=== PATIENT | female | born 1940 | race Caucasian/White ===

== ENCOUNTER 2018-10-08 12:32 | Inpatient (IN) | payer MEDICARE, BC ==
[2018-10-08 13:34] LABS: #Lymphocytes 1.1 thou/uL (1.20-3.40); #Monocytes 0.6 thou/uL (0.11-0.59); %Basophils 0.8 % (0.0-1.0); %Eosinophils 0.3 % (0.0-10.0); %Lymphocytes 18.4 % (21.0-51.0); %Monocytes 11.1 % (0.0-10.0); %Neutrophils 69.4 % (42.0-75.0); Hemoglobin 13.2 g/dL (12.0-16.0); Mean Corpuscular HGB CONC 33.6 g/dL (32.0-36.0); Mean Platelet Volume 7.6 fL (7.4-10.4); Platelet Count 205 thou/uL (130-400); RBC Distribution Width 12.3 % (11.5-14.5); Red Blood Cell (RBC) Count 3.55 mill/uL (4.20-5.40); White Blood Cell (WBC) Count 5.8 thou/uL (4.8-10.8)
[2018-10-08 13:49] LABS: Band 3 % (5-11); Lymphocytes 17 % (21-51); MDiff Complete? YES; Macrocytosis SLIGHT = 6-15 cells (100X) (0-5/hpf); Metamyelocyte 1 % (0-0); Monocytes 3 % (0-10); Neutrophil 61 % (42-75); Platelet Morphology Comment Appears Adequate; Reactive Lymphocytes 15 % (0-10)
--- NOTE | 2018-10-08 13:50 | RAD ---
SINGLE VIEW CHEST: Date: 10/08/18 COMPARISON: 08/13/16. HISTORY: Atrial fibrillation. Abnormal ultrasound of gallbladder. FINDINGS: Single view of the chest shows a normal sized cardiomediastinal silhouette. There is no evidence of c onsolidation, mass, or pleural effusion. The bones are unremarkable. IMPRESSION: No evidence of acute cardiopulmonary disease. POS: [facility]
[2018-10-08 13:51] LABS: ALT (SGPT) 170 U/L (8-55); AST (SGOT) 168 U/L (5-34); Albumin 4.5 g/dL (3.4-4.8); Alkaline Phosphatase 143 U/L (40-150); Anion Gap 16 mmol/L (10-20); BUN (Urea Nitrogen) 19 mg/dL (9.8-20.1); Bilirubin, Total 2.9 mg/dL (0.2-1.2); Calc. Creatinine Clearance 0 mL/min (70-130); Calcium 10.5 mg/dL (7.8-10.44); Carbon Dioxide 25 mmol/L (23-31); Chloride 98 mmol/L (98-107); Estimated GFR-MDRD 65; Globulin 2.8 g/dL (2.4-3.5); Glucose 127 mg/dL (83-110); Lipase 32 U/L (8-78); Protein, Total 7.3 g/dL (6.0-8.3); Sodium 135 mmol/L (136-145)
[2018-10-08] MEDS ORDERED: Acetaminophen 325 MG TAB PO PRN (15:54)
[2018-10-08] MEDS ORDERED: Ondansetron PF 4 MG/2 ML Vial IVP PRN (15:54)
[2018-10-08] MEDS ORDERED: Piperacillin/Tazobactam 3.375 GM VIAL ONE (15:55)
--- NOTE | 2018-10-08 16:45 | HP ---
REASON FOR ADMISSION: New onset atrial fibrillation with RVR, possible acute cholecystitis, possible cirrhosis. HISTORY OF PRESENTING ILLNESS: The patient gives history of having loss of appetite, nausea, belching, low energy, and feeling weak from yesterday. She had gone to see Dr. Augustin, her primary care physician. He had ordered an ultrasound of the right upper quadrant. This was done this morning. The ultrasound result showed gallbladder wall thickening with pericholecystic fluid and gallbladder sludge, which was equivocal for acute cholecystitis. The ultrasound also showed fatty infiltration and possible cirrhosis. The patient says she has no history of hepatitis B or C that she knows of. She also mentions that her pulse has been irregular when she checked with her home device for blood pressure and pulse almost 4 or 5 days back. She has never had this issue before. She sees Dr. Spaulding. She has had a stress test done 5 years back, which was negative. She thinks she might have had a cardiac catheterization done more than 6 or 7 years ago, which was normal. She says she has not had any stents put in. No complaints of chest pain or palpitation. No complaints of shortness of breath. Mild abdominal pain in the right upper quadrant area, which is 2 to 3/10 in intensity with no radiation as such. PAST MEDICAL AND SURGICAL HISTORY: Hypertension, hypothyroidism, new onset atrial fibrillation, colonoscopy done last year by Dr. Mckeon was normal as far she knows , hypothyroidism, and dyslipidemia. No prior surgeries per the patient. CURRENT MEDICATIONS: She takes, 1. Atenolol 50 mg p.o. daily. 2. Ramipril 5 mg daily. 3. Synthroid 125 mcg p.o. daily. 4. Crestor 10 mg p.o. every other day. ALLERGIES: NO KNOWN DRUG ALLERGIES. PERSONAL HISTORY: Does not abuse alcohol or drugs. No history of smoking. FAMILY HISTORY: Mother at the age of 78 years. She has had history of CVA. Father at the age of 77 years. He has had history of unknown GI cancer, likely stomach. CODE STATUS: Full. Power of tax attorney is Ms. Aniya Hayes, who is her sister. REVIEW OF SYSTEMS: CONSTITUTIONAL: Negative for weight loss or gain, ability to conduct usual activities. SKIN: Negative for rash, itching. EYES: Negative for double vision, pain. ENT/MOUTH: Negative for nose bleeding, neck stiffness, pain, tenderness. CARDIOVASCULAR: Negative for palpitations, dyspnea on exertion, orthopnea. RESPIRATORY: Negative for shortness of breath, wheezing, cough, hemoptysis, fever or night sweats. GASTROINTESTINAL: Negative for poor appetite, abdominal pain, heartburn, nausea , vomiting, constipation, or diarrhea. GENITOURINARY: Negative for urgency, frequency, dysuria, nocturia. MUSCULOSKELETAL: Negative for pain, swelling. NEUROLOGIC/PSYCHIATRIC: Negative for anxiety, depression. ALLERGY/IMMUNOLOGIC: Negative for skin rash, bleeding tendency. PHYSICAL EXAMINATION: GENERAL: The patient is a 78-year-old female, who is currently not in any acute distress. VITAL SIGNS: Blood pressure 144/84, pulse 130 per minute, respiratory rate 16 per minute, temperature 97.6 degrees Fahrenheit, and saturating 98% on room air. NECK: Supple. No elevated JVD. HEENT: Eyes; extraocular muscles intact. Pupils reacting to light. Oral cavity, mucous membranes are moist. No exudates or congestion. CARDIOVASCULAR: S1 and S2 heard. Irregular rhythm. RESPIRATORY SYSTEM: Air entry 1+ bilateral. No rales or rhonchi. ABDOMEN: Soft. Mild tenderness on deep palpation in right upper quadrant, otherwise no rigidity or guarding. EXTREMITIES: No peripheral edema or calf tenderness. VASCULAR SYSTEM: Peripheral pulses 1+ bilateral. No ischemic ulcerations or gangrene. CENTRAL NERVOUS SYSTEM. No gross focal deficits noted. The patient is alert, awake, and oriented well. PSYCHIATRIC SYSTEM: The patient's mood is euthymic. No hallucinations or delusions. LABORATORY DATA: EKG done shows atrial fibrillation with RVR at 133 beats per minute. There are signs of LBBB. I do not have a prior EKG to compare this. The QRS duration is 150 milliseconds and corrected QT is 517 milliseconds. White count of 5.8, H and H 13 and 39, platelet count is 205 with 69% neutrophils, and MCV is 110. Sodium 135, serum bicarb 25, BUN 19, creatinine 0.8, serum glucose 127, calcium is 10.5, albumin is 4.5, total bilirubin 2.9, AST 168, ALT 170, alkaline phosphatase 143, lipase is 32. Chest x-ray done shows no acute cardiopulmonary abnormalities. CLINICAL IMPRESSION AND PLAN: The patient will be admitted to telemetry for new onset atrial fibrillation with RVR, possible acute cholecystitis. The patient's ultrasound that was done as outpatient, the report states the patient might have findings of cirrhosis with nodular contour in addition to findings of pericholecystic fluid and gallbladder wall thickening with sludge. She also appears to have fatty infiltration. We will obtain lipid profile in the morning. A HIDA scan will be obtained. ER physician has spoken to Dr. Saucedo, who is on-call for General Surgery. It is unclear if the patient has chronic elevation in her liver function tests. Prior LFT in August of 2016 was within normal limits and total bilirubin was 1.0 then. We will keep her n.p.o., obtain HIDA scan and if it is positive, she will go to OR for acute cholecystitis. If HIDA scan rules out acute cholecystitis, then the patient will be fed with heart healthy diet and initiate lovenox full dose. We will continue her on Cardizem drip 5 mg an hour. We will continue Zosyn that has been started. We will continue her atenolol, a small dose of aspirin, home dose of Synthroid and ramipril. Echocardiogram with 2D Doppler for left ventricular function and to rule out thrombus as well. We will obtain Dr. Spaulding's consult, her director of special events, and hepatitis panel as well. We will continue to closely monitor her on telemetry. Job ID: [id number] [facility]
[2018-10-08 17:25] LABS: HBCM Index 0.07 S/CO (0-0.79); HBSAg Index 0.22 S/CO (0-0.99); Hep A IgM AB Non-Reactive (NonReactive); Hep A IgM S/CO 0.11 S/CO (0-0.79); Hep B Surf Ag Non-Reactive S/CO (NonReactive); Hep C IgG Ab Non-Reactive (NonReactive); Hep C Index 0.05 S/CO (0-0.79); Hepatitis B Core IgM Abs Non-Reactive (NonReactive)
[2018-10-08] MEDS: Diltiazem 125 MG in Sodium Chloride 0.9% 100 ML IVPB SCH (22:11)
[2018-10-08] MEDS: Sodium Chloride 0.9% 1,000 ML IV SCH (22:12)
[2018-10-08] MEDS: Enoxaparin Sodium 60 MG/0.6 ML SYRINGE SC SCH (22:13)
[2018-10-08] MEDS: Famotidine/PF 20 mg/2ml Vial SLOW IVP SCH (22:13)
[2018-10-08] MEDS ORDERED: Melatonin 3 MG TAB PO PRN (23:16)
[2018-10-08] MEDS: Piperacillin/Tazobactam 4.5 GM in Sodium Chloride 0.9% 100 ML IVPB SCH (23:37)
[2018-10-09 04:06] VITALS: BMI 28.5
[2018-10-09 05:32] LABS: #Lymphocytes 0.8 thou/uL (1.20-3.40); #Monocytes 0.8 thou/uL (0.11-0.59); #Neutrophils 4.3 thou/uL (1.40-6.50); %Basophils 0.2 % (0.0-1.0); %Eosinophils 0.4 % (0.0-10.0); %Lymphocytes 14.1 % (21.0-51.0); %Monocytes 13.4 % (0.0-10.0); Hemoglobin 12.4 g/dL (12.0-16.0); Mean Corpuscular HGB CONC 33.5 g/dL (32.0-36.0); Mean Platelet Volume 7.5 fL (7.4-10.4); Platelet Count 191 thou/uL (130-400); RBC Distribution Width 12.7 % (11.5-14.5); Red Blood Cell (RBC) Count 3.36 mill/uL (4.20-5.40)
[2018-10-09 06:01] LABS: ALT (SGPT) 162 U/L (8-55); AST (SGOT) 168 U/L (5-34); Albumin 4.1 g/dL (3.4-4.8); Alkaline Phosphatase 139 U/L (40-150); Anion Gap 16 mmol/L (10-20); BUN (Urea Nitrogen) 17 mg/dL (9.8-20.1); Bilirubin, Total 2.9 mg/dL (0.2-1.2); Calc. Creatinine Clearance 62 mL/min (70-130); Calcium 9.6 mg/dL (7.8-10.44); Carbon Dioxide 20 mmol/L (23-31); Cardiac Risk 2.8 (Less than 4.5); Chloride 105 mmol/L (98-107); Cholesterol 173 mg/dl (< 200 Desired); Estimated GFR-MDRD 66; Globulin 2.6 g/dL (2.4-3.5); Glucose 131 mg/dL (83-110); HDL Cholesterol 61 mg/dL (>60 Neg Risk); LDL Cholesterol, Calculated 95 mg/dL; Potassium 3.7 mmol/L (3.5-5.1); Protein, Total 6.7 g/dL (6.0-8.3); Sodium 137 mmol/L (136-145); Triglycerides 86 mg/dL (Less than 150)
[2018-10-09] MEDS: Piperacillin/Tazobactam 4.5 GM in Sodium Chloride 0.9% 100 ML IVPB SCH ×3 (06:34→22:29)
[2018-10-09] MEDS: Sodium Chloride 0.9% 1,000 ML IV SCH ×2 (06:35→22:29)
[2018-10-09] MEDS: Levothyroxine Sodium 125 MCG TAB PO SCH (06:35)
[2018-10-09] MEDS ORDERED: Prevnar 13-Val Conj/PF 0.5 ML SYRINGE IM ONE (09:00)
[2018-10-09] MEDS ORDERED: Aspirin Chewable 81 MG TAB PO SCH (09:00)
[2018-10-09] MEDS ORDERED: Ramipril 5 MG CAP PO SCH (09:00)
--- NOTE | 2018-10-09 11:36 | NM ---
HEPATOBILIARY STUDY: DATE: 10/09/2018. HISTORY: Nausea, belching, loss of appetite. Elevated laboratory values. Gallbladder wall thickening and per icholecystic fluid noted on recent gallbladder ultrasound. RADIOPHARMACEUTICAL: Five mCi Technetium 99m mebrofenin, IV. MEDICATIONS: 10.4 mcg CCK analog infused intravenously over 30 minutes. FINDINGS: Central anterior images of the upper abdomen are obtained. There is prompt uptake of radiotracer by the liver. Gallbladder activity is visualized by approximately 12 minutes with increasing activity i n the gallbladder imaging up to 60 minutes. There is excretion of contrast with bowel activity faint ly visualized by approximately 40 minutes. After 60 minutes of imaging, CK analog was infused over 3 0 minutes, and a gallbladder ejection fraction of 32% was obtained. This has decreased with normal g allbladder ejection fraction being greater than 34%. IMPRESSION: 1. Decreased gallbladder ejection fraction which can be seen with biliary dyskinesis or chronic chol ecystitis. 2. No evidence of a cystic or common duct obstruction. POS: [facility]
--- NOTE | 2018-10-09 12:22 | PDOC.PN ---
- Subjective Encounter Start Date: 10/09/18 Encounter Start Time: 15:00 Subjective: no chest pain -: plan is for [facility] in am -: has exertional sob - Objective Resuscitation Status - Order Detail: 10/08/18 15:48 Resuscitation Status Routine Resuscitation Status: FULL: Full Resuscitation MAR Reviewed: Yes Vital Signs & Weight: Vital Signs (12 hours) Temp Pulse Resp BP Pulse Ox 10/09/18 07:10 97.6 F 94 18 154/88 H 95 10/09/18 03:42 97.6 F 86 16 147/95 H 92 L Weight Weight 155 lb 14.4 oz I&O: 10/08/18 10/09/18 10/10/18 06:59 06:59 06:59 Intake Total 1309.2 Output Total 600 Balance 709.2 Result Diagrams: 10/09/18 05:23 10/09/18 05:23 Phys Exam - Physical Examination HEENT: PERRLA, moist MMs Neck: no JVD, supple Respiratory: no wheezing, no rales Cardiovascular: no significant murmur, irregular Gastrointestinal: soft, no distention, positive bowel sounds Musculoskeletal: no edema, pulses present Neurological: non-focal, moves all 4 limbs Psychiatric: normal affect, A&O x 3 Dx/Plan (1) Acute cholecystitis Code(s): K81.0 - ACUTE CHOLECYSTITIS Status: Acute (2) New onset a-fib Code(s): I48.91 - UNSPECIFIED ATRIAL FIBRILLATION Status: Acute (3) Dyslipidemia Code(s): E78.5 - HYPERLIPIDEMIA, UNSPECIFIED Status: Chronic (4) HTN (hypertension) Code(s): I10 - ESSENTIAL (PRIMARY) HYPERTENSION Status: Chronic Qualifiers: Hypertension type: essential hypertension Qualified Code(s): I10 - Essential (primary) hypertension (5) Hypothyroidism Code(s): E03.9 - HYPOTHYROIDISM, UNSPECIFIED Status: Chronic Qualifiers: Hypothyroidism type: unspecified Qualified Code(s): E03.9 - Hypothyroidism , unspecified - Plan await surgical opinion -: lovenox held for today -: is on cardizem drip with rate well controlled -: continue atenolol, synthroid and zosyn for now -: d/w this am * . Review of Systems - Medications/Allergies Allergies/Adverse Reactions: Allergies Allergy/AdvReac Type Severity Reaction Status Date / Time No Known Allergies Allergy Verified 10/09/18 03:59 Medications: Current Medications Acetaminophen (Tylenol) 650 mg PO Q4H PRN PRN Reason: Headache/Fever/Mild Pain (1-3) Atenolol (Tenormin) 25 mg PO DAILY [facility] Enoxaparin Sodium (Lovenox) 60 mg SC 0900,2100 [facility] Last Admin: 10/08/18 22:13 Dose: 60 mg Famotidine (Pepcid) 20 mg SLOW IVP Q12HR [facility] Last Admin: 10/08/18 22:13 Dose: 20 mg Piperacillin Sod/Tazobactam (Sod 4.5 gm/ Sodium Chloride) 100 mls @ 200 mls/hr IVPB Q8HR [facility] Last Admin: 10/09/18 06:34 Dose: 100 mls Diltiazem HCl 125 mg/ Sodium (Chloride) 125 mls @ 5 mls/hr IVPB INF [facility]; Protocol Last Admin: 10/08/18 22:11 Dose: 125 mls Levothyroxine Sodium (Synthroid) 125 mcg PO 0600 [facility] Last Admin: 10/09/18 06:35 Dose: Not Given Melatonin (Melatonin) 6 mg PO HS PRN PRN Reason: Insomnia Last Admin: 10/08/18 23:37 Dose: 6 mg Ondansetron HCl (Zofran) 4 mg IVP Q6H PRN PRN Reason: Nausea/Vomiting Ramipril (Altace) 5 mg PO DAILY [facility]
[2018-10-09] MEDS: Enoxaparin Sodium 60 MG/0.6 ML SYRINGE SC SCH (12:30)
--- NOTE | 2018-10-09 12:42 | CON ---
DATE OF CONSULTATION: 10/09/2018 REASON FOR CONSULTATION: Atrial fibrillation with a rapid ventricular response. HISTORY OF PRESENT ILLNESS: Ms. Graham is a pleasant 78-year-old woman, who recently was noted to have some irregularity to her heart rate. She said for about a week, she noticed that it seemed irregular when she tried to take her blood pressure, for which she would see Dr. Bradley. She was found to be in atrial fibrillation with a rapid rate. She did not have chest pain or pressure. Does feel weak. Did not feel as good since this finding was noted. The patient's predominant symptom is weakness and low energy. She also had nausea and belching. She had an ultrasound of her gallbladder done, which showed some gallbladder sludge. She has been brought here for further evaluation. PAST MEDICAL HISTORY: She has a history of; 1. Left bundle branch block, chronic. 2. Mild coronary artery disease on previous catheterization is nonobstructive. 3. Hypertension. 4. Hypercholesterolemia. MEDICATIONS: Prior to admission; 1. Atenolol 50 mg a day. 2. Ramipril 5 mg a day. 3. Synthroid 125 mcg a day. 4. Crestor 10 mg every other day. ALLERGIES: NONE KNOWN. OTHER HISTORY, SHE HAS A HISTORY OF UPPER GASTROINTESTINAL ULCERATION CAUSING GI BLEEDING IN THE PAST. SOCIAL HISTORY: No alcohol or drugs. FAMILY HISTORY: Mother at age 78, history of stroke. Father at 77. REVIEW OF SYSTEMS: CONSTITUTIONAL: No significant weight gain or loss. VISION: No changes. HEARING: No changes. PULMONARY: No cough or wheezing. GASTROINTESTINAL: No vomiting. Some nausea. SKIN: No rashes. NEUROLOGIC: No unilateral weakness or numbness. PSYCHIATRIC: No unusual depression or anxiety. HEMATOLOGIC: No unusual bruising. CARDIAC: As outlined above. PHYSICAL EXAMINATION: GENERAL: This is a pleasant 78-year-old woman, in no distress. VITAL SIGNS: Blood pressure is 154/88, pulse 90 and it is irregular. EYES: Sclerae nonicteric. MOUTH: Mucous membranes moist. NECK: Supple. No lymphadenopathy. LUNGS: Clear. No wheezing, rales, or rhonchi. CARDIAC: Irregularly irregular. No murmur, rub, or gallop. ABDOMEN: Soft and nontender. EXTREMITIES: No clubbing or cyanosis. There is no edema. LABORATORY DATA: Echocardiogram is pending. Hemoglobin is 12.4. Potassium is 3.7. Liver function tests, AST is 168 and ALT is 162. EKG shows left bundle branch block with atrial fibrillation, this left bundle was chronic. ASSESSMENT: 1. Newly diagnosed atrial fibrillation with a rapid rate. 2. Left bundle branch block, chronic. 3. Possible cholecystitis. 4. Increase liver function tests. 5. History of gastrointestinal bleeding in the remote past, looking at the records that was 2 years ago in August of 2016. PLAN: 1. Surgical consultation about the gallbladder. 2. Okay to proceed to surgery if necessary. 3. We will recommend a transesophageal echo and cardioversion. 4. We will hold off on amiodarone now in view of increased liver function tests. 5. Resume beta blockers. 6. Hold anticoagulation until decision is made about surgery. We will be glad to follow with you. I will be out tomorrow. My partners will be seeing tomorrow, I will be back on Sunday and see if she is in the hospital at that point. Job ID: [id number]
[2018-10-09] MEDS: Atenolol 25 MG TAB PO SCH (13:40)
[2018-10-09] MEDS: Famotidine/PF 20 mg/2ml Vial SLOW IVP SCH ×2 (13:41→22:29)
[2018-10-09] MEDS ORDERED: Amiodarone 200 MG TAB PO SCH (15:00)
--- NOTE | 2018-10-09 18:35 | PRG ---
DATE OF SERVICE: 10/09/2018 SUBJECTIVE: Ms. Graham's echocardiogram showed ejection fraction is 40% to 45%. She has paradoxical septal motion. ASSESSMENT: The patient has cholecystitis and has atrial fibrillation with a controlled rate. PLAN: I think it is reasonable to go ahead and proceed to removal of the gallbladder tomorrow. At some point, we will probably need a transesophageal echo and cardioversion. Why we will not use amiodarone at this point, as her liver function tests are currently elevated. Job ID: [id number]
--- NOTE | 2018-10-09 20:23 | CON ---
DATE OF CONSULTATION: 10/09/2018 HISTORY OF PRESENT ILLNESS: This is a 78-year-old woman, who was admitted yesterday with progressive recurrent nausea, belching, anorexia and fatigue. The patient is unable to relate this to any foods or activity. She denies any abdominal pain. She admits to abdominal bloating, but denied any flatulence. She denies any other change in her bowel habits. The patient denies any fevers or chills. She was seen by her primary care physician. An abdominal ultrasound was obtained which revealed gallbladder wall thickening with pericholecystic fluid, but no gallstones. I was asked to evaluate the patient for surgical intervention. At the time of my evaluation, the patient is awake and alert. She denied any abdominal pain at this time. She is currently on bowel rest and denies any nausea. PAST MEDICAL HISTORY: Pertinent for essential hypertension, hypothyroidism, new onset atrial fibrillation, and hyperlipidemia. PAST SURGICAL HISTORY: Pertinent for recent colonoscopy. She denies any abdominal surgeries. SOCIAL HISTORY: The patient admits to a glass or two of wine every other day. She denies any cigarette smoking or illicit drug abuse. CURRENT MEDICATION: Includes 1. Atenolol 25 mg p.o. daily. 2. Diltiazem by continuous infusion for rate control. 3. Famotidine 20 mg IV q.12 hours. 4. Levothyroxine 125 mcg p.o. daily. 5. Piperacillin and tazobactam 4.5 g IV q.8 hours. 6. Ramipril 5 mg p.o. daily. ALLERGIES: THE PATIENT HAS NO KNOWN DRUG ALLERGIES. REVIEW OF SYSTEMS: Ten-point review of systems is essentially unremarkable except as stated in past medical history and chief complaint. PHYSICAL EXAMINATION: GENERAL: This reveals a 78-year-old normally developed woman, who is otherwise coherent and interactive and appears stated age. The patient is alert and oriented x3. She appears to be in no acute distress at the time of my evaluation. VITAL SIGNS: Include blood pressure 154/88, pulse 94 and irregular, respiratory rate is 18, temperature 97.6 degrees Fahrenheit, oxygen saturation is 95% on room air. HEENT: Reveals normocephalic and atraumatic. Pupils are equal, round, and reactive to light and accommodation. Extraocular muscles are intact bilaterally. No scleral icterus is present. Oral mucosa is pink and moist. No lesions are noted. NECK: Supple. No palpable lymphadenopathy or thyromegaly present. HEART: Reveals irregular rate and irregular rhythm. LUNGS: Clear to auscultation bilaterally. Breathing, regular, nonlabored. ABDOMEN: Soft, moderately distended. She has no tenderness to palpation. Liver and spleen are nonpalpable below costal margin. EXTREMITIES: Reveal 2 +radial and pedal pulses bilaterally. No ankle edema is present. NEUROLOGIC: Reveals no focal deficits present. LABORATORY FINDINGS: Today include a CBC with 6000 white blood cells, hemoglobin and hematocrit 12.4 and 37.1 respectively. Platelet count 191,000. Metabolic profile; sodium 137, potassium is 3.7, chloride is 105, bicarb is 20, BUN is 17, creatinine 0.83, glucose is 131, total bilirubin is 2.9, AST and ALT elevated at 168 and 162 respectively. Alkaline phosphatase is normal at 139. Serum lipase obtained yesterday was normal at 32. I have personally reviewed the HIDA scan, which was obtained today, which is remarkable for decreased gallbladder ejection fraction at 32%. There is no evidence of cystic or common bile duct obstruction as the gallbladder itself was visualized within 12 minutes. IMPRESSIONS: 1. Chronic acalculous cholecystitis. 2. New onset atrial fibrillation, currently rate controlled. RECOMMENDATIONS: Laparoscopic cholecystectomy with intraoperative cholangiogram. Above findings and plan were discussed with the patient in the presence of her nurse. I advised the patient of the risks and benefits of the proposed surgery to include, but not limited to bleeding, infection, injury to bile duct or surrounding structures. The patient indicates understanding of information given. I have answered her questions. The patient is going to consent for proposed surgical intervention. Thank you again, Dr. Johnson for allowing me the opportunity to participate in the care of this patient. Job ID: [id number]
[2018-10-09] MEDS: Diltiazem 125 MG in Sodium Chloride 0.9% 100 ML IVPB SCH (22:30)
[2018-10-10] MEDS: Piperacillin/Tazobactam 4.5 GM in Sodium Chloride 0.9% 100 ML IVPB SCH ×3 (05:38→21:26)
[2018-10-10] MEDS: Levothyroxine Sodium 125 MCG TAB PO SCH (05:39)
[2018-10-10] MEDS: Famotidine/PF 20 mg/2ml Vial SLOW IVP SCH ×2 (08:31→21:22)
[2018-10-10] MEDS: Atenolol 25 MG TAB PO SCH (08:31)
[2018-10-10] MEDS ORDERED: Fentanyl 100 MCG/2 ML VIAL ONE (13:42)
[2018-10-10] MEDS ORDERED: Iothalamate Meglumine 60% 50 ML VIAL FS ONE (14:03)
[2018-10-10] MEDS ORDERED: Bupivacaine/Epinephrine 0.25% 30 ML VIAL ONE (14:03)
--- NOTE | 2018-10-10 14:39 | PDOC.PN ---
- Subjective Encounter Start Date: 10/10/18 Encounter Start Time: 08:00 Pt seen for followup re: a. fib. Denies chest pain, shortness of breath, fevers or chills. - Objective Resuscitation Status - Order Detail: 10/08/18 15:48 Resuscitation Status Routine Resuscitation Status: FULL: Full Resuscitation MAR Reviewed: Yes Vital Signs & Weight: Vital Signs (12 hours) Temp Pulse Resp BP Pulse Ox 10/10/18 11:00 97.3 F L 75 18 140/77 98 10/10/18 07:29 97.7 F 83 16 157/72 H 97 10/10/18 04:00 98.5 F 70 18 115/60 95 Weight Weight 160 lb 1.6 oz I&O: 10/09/18 10/10/18 10/11/18 06:59 06:59 06:59 Intake Total 1309.2 1700.1 Output Total 600 400 Balance 709.2 1300.1 Result Diagrams: 10/09/18 05:23 10/09/18 05:23 EKG Reviewed by me: Yes (tele: kishore barlow) Phys Exam - Physical Examination Constitutional: NAD HEENT: moist MMs, sclera anicteric, oral pharynx no lesions, 2+ tonsils Neck: no nodes, no JVD, supple, full ROM Respiratory: clear to auscultation bilateral Cardiovascular: RRR, no rub S1, S2 Gastrointestinal: soft, no distention, positive bowel sounds RUQ tenderness Neurological: moves all 4 limbs Psychiatric: normal affect, A&O x 3 Dx/Plan (1) New onset a-fib Code(s): I48.91 - UNSPECIFIED ATRIAL FIBRILLATION Status: Acute Comment: pt in sinus rhtyhm, monitor on telelemetry (2) Acute cholecystitis Code(s): K81.0 - ACUTE CHOLECYSTITIS Status: Acute Comment: for surgery today (3) Dyslipidemia Code(s): E78.5 - HYPERLIPIDEMIA, UNSPECIFIED Status: Chronic Comment: stable (4) HTN (hypertension) Code(s): I10 - ESSENTIAL (PRIMARY) HYPERTENSION Status: Chronic Qualifiers: Hypertension type: essential hypertension Qualified Code(s): I10 - Essential (primary) hypertension Comment: controlled (5) Hypothyroidism Code(s): E03.9 - HYPOTHYROIDISM, UNSPECIFIED Status: Chronic Qualifiers: Hypothyroidism type: unspecified Qualified Code(s): E03.9 - Hypothyroidism , unspecified Comment: stable - Plan * . Review of Systems - Review of Systems Constitutional: negative: fever, chills, sweats, weakness, malaise Respiratory: negative: Cough, Shortness of Breath, SOB with Excertion, Pleuritic Pain, Wheezing Gastrointestinal: Abdominal Pain. negative: Nausea, Vomiting, Diarrhea, Constipation, Melena, Hematochezia Genitourinary: negative: Dysuria, Frequency, Incontinence, Hematuria, Retention Skin: negative: Rash, Lesions, Jim, Bruising - Medications/Allergies Allergies/Adverse Reactions: Allergies Allergy/AdvReac Type Severity Reaction Status Date / Time No Known Allergies Allergy Verified 10/09/18 03:59 Medications: Current Medications Acetaminophen (Tylenol) 650 mg PO Q4H PRN PRN Reason: Headache/Fever/Mild Pain (1-3) Atenolol (Tenormin) 25 mg PO DAILY [facility] Last Admin: 10/10/18 08:31 Dose: 25 mg Famotidine (Pepcid) 20 mg SLOW IVP Q12HR [facility] Last Admin: 10/10/18 08:31 Dose: 20 mg Piperacillin Sod/Tazobactam (Sod 4.5 gm/ Sodium Chloride) 100 mls @ 200 mls/hr IVPB Q8HR [facility] Last Admin: 10/10/18 05:38 Dose: 100 mls Diltiazem HCl 125 mg/ Sodium (Chloride) 125 mls @ 5 mls/hr IVPB INF [facility]; Protocol Last Admin: 10/09/18 22:30 Dose: 125 mls Sodium Chloride (Normal Saline 0.9%) 1,000 mls @ 40 mls/hr IV .Q24H [facility] Last Admin: 10/09/18 22:29 Dose: 1,000 mls Levothyroxine Sodium (Synthroid) 125 mcg PO 0600 [facility] Last Admin: 10/10/18 05:39 Dose: Not Given Melatonin (Melatonin) 6 mg PO HS PRN PRN Reason: Insomnia Last Admin: 10/08/18 23:37 Dose: 6 mg Ondansetron HCl (Zofran) 4 mg IVP Q6H PRN PRN Reason: Nausea/Vomiting Ramipril (Altace) 5 mg PO DAILY [facility]
[2018-10-10] MEDS ORDERED: Rocuronium Bromide 10 MG/ML (10ML VIAL) ONE (14:54)
[2018-10-10] MEDS ORDERED: Ondansetron PF 4 MG/2 ML Vial ONE (14:54)
[2018-10-10] MEDS ORDERED: Glycopyrrolate 0.2 MG/ML 5 ML SYRINGE ONE (14:54)
[2018-10-10] MEDS ORDERED: Succinylcholine Chloride 20 MG/ML 10 ml SYRINGE FS ONE (14:54)
[2018-10-10] MEDS ORDERED: Lidocaine 1% PF 5 ML VIAL ONE (14:54)
[2018-10-10] MEDS ORDERED: Metoclopramide HCl 10 MG/2 ML VIAL ONE (14:54)
[2018-10-10] MEDS ORDERED: Dexamethasone 20 MG/5 ML VIAL ONE (14:54)
[2018-10-10] MEDS ORDERED: PROPOFOL 200 MG/20 ML VIAL ONE (14:54)
[2018-10-10] MEDS ORDERED: SUGAMMADEX SODIUM 200 MG/2 ML VIAL ONE (15:56)
[2018-10-10] MEDS ORDERED: Ondansetron HCl/PF 4 MG/2 ML Vial IVP PRN (16:20)
[2018-10-10] MEDS ORDERED: Ketorolac Tromethamine 30 MG/ML VIAL IVP PRN (16:20)
[2018-10-10] MEDS ORDERED: traMADol HCl 50 MG TAB PO PRN (16:21)
[2018-10-10] MEDS ORDERED: Ketorolac Tromethamine 30 MG/ML VIAL ONE (16:21)
[2018-10-10] MEDS: traMADol HCl 50 MG TAB PO PRN (21:14)
[2018-10-10] MEDS: Sodium Chloride 0.9% 1,000 ML IV SCH (21:19)
--- NOTE | 2018-10-10 21:39 | OP ---
DATE OF PROCEDURE: 10/10/2018 PREOPERATIVE DIAGNOSIS: Chronic acalculous cholecystitis. POSTOPERATIVE DIAGNOSES: 1. Chronic acalculous cholecystitis. 2. Bilious ascites secondary to liver cirrhosis. OPERATION PERFORMED: Laparoscopic cholecystectomy. ANESTHESIA: General endotracheal. ESTIMATED BLOOD LOSS: 20 mL. FLUIDS GIVEN: 1000 mL of crystalloids. COUNTS: Sponge and instrument counts were verified as correct x2. COMPLICATIONS: None apparent at the time of operation. INDICATIONS FOR OPERATION: A 78-year-old woman, presented with anorexia, progressive fatigue, and nausea. Clinical radiographic examination was consistent with an abnormal gallbladder with low ejection fraction. Abdominal ultrasound also revealed a gallbladder wall with significant thickening and pericholecystic fluid. The patient was brought to the operating room today for cholecystectomy. Findings are consistent with enlarged gallbladder in the usual anatomic location, encased by omental adhesions. A large amount of bilious ascites was also noted. DESCRIPTION OF OPERATION: Informed consent was obtained from the patient, she was brought to the operating room and placed in supine position. Following general anesthesia, abdomen was sterilely prepped and draped in usual fashion. The skin below the umbilicus was infiltrated with 0.25% Marcaine with epinephrine. A small curvilinear infraumbilical incision was made using an 11 scalpel. Umbilical stalk was grasped with Gin and elevated. Veress needle was inserted through the incision and placed in the peritoneal cavity through which the abdomen was insufflated with 3 L of CO2 gas. Intraabdominal pressure was noted at 2 mmHg. Following abdominal insufflation, Veress needle was removed and a 5-mm trocar introduced using Visiport under laparoscopy. Laparoscopy confirmed proper placement of the port, no injuries to underlying structures. Additional laparoscopy revealed right upper quadrant obscured by omental adhesions. A large amount of bilious ascites was also noted. Under direct laparoscopy, a 12-mm epigastric and two 5 mm right lateral subcostal ports were placed after the overlying skin were infiltrated with 0.25% Marcaine with epinephrine and appropriate incision was made. The patient was placed in a reverse Trendelenburg position, rotated to her left. I introduced an Endo suction catheter through the epigastric port site, using this to evacuate bilious ascites. Using [place] dissector with cautery, omental adhesions were taken down off the liver. The fundus of the gallbladder was exposed. A Prestige grasper was introduced through the right lateral subcostal port grasping the fundus of the gallbladder which was elevated cephalad. Omental adhesions were then dissected off the remainder of the gallbladder. A second Prestige grasper was introduced through the right medial subcostal port grasping the Lisy pouch which was retracted laterally. The cystic duct was carefully dissected free from surrounding structures at the triangle of Calot. The duct was divided between clips, applying two clips proximally and one clip at the junction of the cystic duct and gallbladder. Cystic artery was dissected free from surrounding structures and divided between clips in a similar fashion. The gallbladder itself was removed from the liver bed using cautery. Gallbladder delivered off the abdominal cavity using the EndoCatch. Operative site was inspected. There was just minor oozing from the gallbladder fossa. Hemostasis was readily achieved using Mirlande. Finding no other pathology, laparoscopy was terminated. Fascia of the epigastric port was closed using 0 Vicryl suture and endo-closure device under the laparoscopy. Abdomen was desufflated. All ports and instruments were removed and accounted for. Skin incision was closed using 4-0 Monocryl suture in a subcuticular fashion. Dermabond was applied over incisional closure. The patient tolerated the operation without any apparent complications and was returned to the recovery room in satisfactory condition. Job ID: [id number]
[2018-10-11] MEDS: Diltiazem 125 MG in Sodium Chloride 0.9% 100 ML IVPB SCH (00:06)
[2018-10-11] MEDS: traMADol HCl 50 MG TAB PO PRN ×2 (03:36→21:12)
[2018-10-11] MEDS: Levothyroxine Sodium 125 MCG TAB PO SCH (06:02)
[2018-10-11] MEDS: Piperacillin/Tazobactam 4.5 GM in Sodium Chloride 0.9% 100 ML IVPB SCH ×3 (06:03→21:12)
[2018-10-11 06:41] LABS: #Lymphocytes 0.9 thou/uL (1.20-3.40); #Monocytes 0.5 thou/uL (0.11-0.59); #Neutrophils 5.8 thou/uL (1.40-6.50); %Basophils 0.1 % (0.0-1.0); %Eosinophils 0.7 % (0.0-10.0); %Lymphocytes 11.9 % (21.0-51.0); %Monocytes 6.3 % (0.0-10.0); %Neutrophils 81.1 % (42.0-75.0); Hemoglobin 12.3 g/dL (12.0-16.0); MDiff Complete? YES; Macrocytosis SLIGHT = 6-15 cells (100X) (0-5/hpf); Mean Corpuscular HGB CONC 33.2 g/dL (32.0-36.0); Mean Platelet Volume 8.1 fL (7.4-10.4); Platelet Count 205 thou/uL (130-400); RBC Distribution Width 12.9 % (11.5-14.5); Red Blood Cell (RBC) Count 3.31 mill/uL (4.20-5.40); White Blood Cell (WBC) Count 7.2 thou/uL (4.8-10.8)
[2018-10-11 06:46] LABS: ALT (SGPT) 149 U/L (8-55); AST (SGOT) 144 U/L (5-34); Albumin 3.7 g/dL (3.4-4.8); Alkaline Phosphatase 96 U/L (40-150); Anion Gap 15 mmol/L (10-20); BUN (Urea Nitrogen) 23 mg/dL (9.8-20.1); Bilirubin, Direct 2.1 mg/dL (0.1-0.3); Calc. Creatinine Clearance 62 mL/min (70-130); Calcium 9.1 mg/dL (7.8-10.44); Carbon Dioxide 20 mmol/L (23-31); Chloride 107 mmol/L (98-107); Estimated GFR-MDRD 62; Glucose 158 mg/dL (83-110); Phosphorus 3.1 mg/dL (2.3-4.7); Sodium 138 mmol/L (136-145)
--- NOTE | 2018-10-11 09:07 | PRG ---
DATE OF SERVICE: 10/11/2018 SUBJECTIVE: Ms. Graham did well with her surgery yesterday. She is awake and alert. OBJECTIVE: VITAL SIGNS: Her blood pressure is 124/71, pulse 80, it is irregular, atrial fibrillation. LUNGS: Clear. CARDIAC: Irregularly irregular. ABDOMEN: Soft, nontender. EXTREMITIES: There is no edema. LABORATORY DATA: In the rhythm strip, she is still in atrial fibrillation with a left bundle branch block. ASSESSMENT: 1. Atrial fibrillation, recent onset. 2. Cholecystitis, status post gallbladder removal, still has increased liver function tests and bilirubin is also elevated. 3. Mild to moderately depressed left ventricular function with an echocardiogram showing ejection fraction of 40% to 45%. PLAN: 1. Plan for transesophageal echo and cardioversion later today. 2. We will need to anticoagulate with Lovenox instead of Xarelto or Eliquis in view of the hepatic insufficiency. 3. Ultimately for liver function tests improved and she has recurrent atrial fibrillation, would probably start amiodarone. 4. If she has depressed left ventricular function, may need to consider biventricular pacing at some point, but the ejection fraction may improve with rate control and rhythm control. Discussed transesophageal echocardiogram and cardioversion with the patient. She understands and wished to proceed. Job ID: [id number]
[2018-10-11] MEDS: Famotidine/PF 20 mg/2ml Vial SLOW IVP SCH ×2 (09:41→21:11)
[2018-10-11] MEDS: Atenolol 25 MG TAB PO SCH (09:41)
[2018-10-11] MEDS ORDERED: PROPOFOL 0 ML ONE (09:50)
[2018-10-11] MEDS ORDERED: Lidocaine 1% PF 5 ML VIAL ONE (09:50)
[2018-10-11] MEDS ORDERED: PROPOFOL 40 ML ONE (11:30)
[2018-10-11] MEDS ORDERED: Atenolol 50 MG TAB PO SCH (12:30)
--- NOTE | 2018-10-11 12:43 | PRG ---
DATE OF SERVICE: ADDENDUM: The transesophageal echo was very suggestive of a thrombus in the left atrial appendage. The patient will be started on Lovenox. See her in the office next week. If her liver function tests are normal, we can change her to Eliquis when anticoagulate for 3-4 weeks and repeat a transesophageal echo before cardioversion. Job ID: [id number]
[2018-10-11] MEDS ORDERED: PROPOFOL 200 MG/20 ML VIAL ONE (13:54)
--- NOTE | 2018-10-11 16:51 | PRG ---
DATE OF SERVICE: 10/11/2018 SUBJECTIVE: The patient is postoperative day 1 for laparoscopic cholecystectomy due to acute acalculous cholecystitis. She was initially admitted to the hospital for abdominal discomfort as well as weakness and was reported to have new-onset atrial fibrillation and acute acalculous cholecystitis. Postoperatively, the patient has been tolerating her diet. Her pain is well controlled. She denies nausea, vomiting, or diarrhea. She denies flatus or bowel movement at this time. She is pending cardioversion this morning. OBJECTIVE: VITAL SIGNS: Temperature 97.4, pulse 79, respirations 16, oxygen saturation 99% on 1 L nasal cannula, blood pressure 124/71. GENERAL: Elderly female, well appearing, sitting up in bed with no signs of acute distress. PULMONARY: Equal chest rise and fall. Breath sounds clear bilaterally. No signs of acute respiratory distress. CARDIAC: Regular rate and rhythm. No murmurs, gallops, or rubs. ABDOMEN: Soft, nontender, nondistended. Positive bowel sounds. Surgical wound is clean, dry, and intact with no signs of infection. No drains noted. EXTREMITIES: Gross motor sensation intact in all 4 extremities. Pulses present in all extremities. No swelling noted. LABORATORY FINDINGS: White count 7.2, hemoglobin 12.3, hematocrit 36.9, platelets 205. Sodium 138, potassium 4.0, chloride 104, carbon dioxide 20, BUN 23, creatinine 0.88, glucose 158, phos 3.1, magnesium 2.0. DIAGNOSTIC FINDINGS: There are no diagnostic findings to report. ASSESSMENT: 1. Acute acalculous cholecystitis, status post laparoscopic cholecystectomy postop day #1. 2. Acute new-onset atrial fibrillation. PLAN: The patient can advance diet as tolerated after cardioversion today. She can take ibuprofen and tramadol for pain, but should avoid Tylenol. She was also complaining of difficulty sleeping, and melatonin 3 mg at night was also recommended. Ambulation, the patient should ambulate regularly to encourage return of bowel function. No need for IV fluids once taking in good p.o. intake. The patient can follow up in [address] Saucedo in clinic. Trauma chief administrative officer will contact the patient via phone to set up appointment. Surgery will sign off at this time. Please call with any questions or concerns. Job ID: [id number]
--- NOTE | 2018-10-11 17:30 | PDOC.PN ---
- Subjective Encounter Start Date: 10/11/18 Encounter Start Time: 17:28 Pt seen for followup re: afib with rvr. Denies chest pain. Upset re: blood clot in heart. - Objective Resuscitation Status - Order Detail: 10/08/18 15:48 Resuscitation Status Routine Resuscitation Status: FULL: Full Resuscitation Vital Signs & Weight: Vital Signs (12 hours) Temp Pulse Resp BP BP Pulse Ox 10/11/18 15:19 97.7 F 89 16 124/83 97 10/11/18 13:02 97 150/74 H 10/11/18 12:35 97.8 F 95 18 144/89 H 97 10/11/18 09:41 79 10/11/18 07:40 97.4 F L 79 16 124/71 99 Weight Weight 165 lb 3.2 oz I&O: 10/10/18 10/11/18 10/12/18 06:59 06:59 06:59 Intake Total 1700.1 1122 Output Total 400 100 Balance 1300.1 1022 Result Diagrams: 10/11/18 05:51 10/11/18 05:51 Phys Exam - Physical Examination Constitutional: NAD HEENT: moist MMs icterus Neck: supple Respiratory: clear to auscultation bilateral Cardiovascular: irregular Gastrointestinal: soft, positive bowel sounds Neurological: moves all 4 limbs Psychiatric: normal affect Dx/Plan (1) New onset a-fib Code(s): I48.91 - UNSPECIFIED ATRIAL FIBRILLATION Status: Acute Comment: GREGORY clot on SNEHAL, pt did not have cardioversion (2) Acute cholecystitis Code(s): K81.0 - ACUTE CHOLECYSTITIS Status: Acute Comment: s/p cholecystectomy (3) Dyslipidemia Code(s): E78.5 - HYPERLIPIDEMIA, UNSPECIFIED Status: Chronic Comment: stable (4) HTN (hypertension) Code(s): I10 - ESSENTIAL (PRIMARY) HYPERTENSION Status: Chronic Qualifiers: Hypertension type: essential hypertension Qualified Code(s): I10 - Essential (primary) hypertension Comment: controlled (5) Hypothyroidism Code(s): E03.9 - HYPOTHYROIDISM, UNSPECIFIED Status: Chronic Qualifiers: Hypothyroidism type: unspecified Qualified Code(s): E03.9 - Hypothyroidism , unspecified Comment: statin on hold (abnormal LFTs) - Plan * . Review of Systems - Review of Systems Respiratory: negative: Cough, Shortness of Breath, SOB with Excertion, Pleuritic Pain, Wheezing Cardiovascular: negative: chest pain, palpitations, orthopnea, paroxysmal nocturnal dyspnea, edema, light headedness - Medications/Allergies Allergies/Adverse Reactions: Allergies Allergy/AdvReac Type Severity Reaction Status Date / Time No Known Allergies Allergy Verified 10/09/18 03:59 Medications: Current Medications Atenolol (Tenormin) 50 mg PO DAILY [facility] Enoxaparin Sodium (Lovenox) 80 mg SC 0600,1800 [facility] Famotidine (Pepcid) 20 mg SLOW IVP Q12HR [facility] Last Admin: 10/11/18 09:41 Dose: Not Given Piperacillin Sod/Tazobactam (Sod 4.5 gm/ Sodium Chloride) 100 mls @ 200 mls/hr IVPB Q8HR [facility] Last Admin: 10/11/18 13:03 Dose: 100 mls Sodium Chloride (Normal Saline 0.9%) 1,000 mls @ 40 mls/hr IV .Q24H [facility] Last Admin: 10/10/18 21:19 Dose: 1,000 mls Levothyroxine Sodium (Synthroid) 125 mcg PO 0600 [facility] Last Admin: 10/11/18 06:02 Dose: 125 mcg Melatonin (Melatonin) 6 mg PO HS PRN PRN Reason: Insomnia Last Admin: 10/08/18 23:37 Dose: 6 mg Ondansetron HCl (Zofran) 4 mg IVP Q6H PRN PRN Reason: Nausea/Vomiting Ramipril (Altace) 5 mg PO DAILY [facility] Tramadol HCl (Ultram) 50 mg PO Q6H PRN PRN Reason: Moderate Pain (4-6) Last Admin: 10/11/18 03:36 Dose: 50 mg Tramadol HCl (Ultram) 100 mg PO Q6H PRN PRN Reason: Severe Pain (7-10)
[2018-10-11] MEDS: Enoxaparin Sodium 80 MG/0.8 ML SYRINGE SC SCH (17:57)
[2018-10-11] MEDS ORDERED: Sodium Chloride 0.9% 20 ML ONE (20:34)
[2018-10-11] MEDS: Sodium Chloride 0.9% 1,000 ML IV SCH (21:11)
[2018-10-12] MEDS: Levothyroxine Sodium 125 MCG TAB PO SCH (06:17)
[2018-10-12] MEDS: Enoxaparin Sodium 80 MG/0.8 ML SYRINGE SC SCH ×2 (06:17→17:17)
[2018-10-12] MEDS: Piperacillin/Tazobactam 4.5 GM in Sodium Chloride 0.9% 100 ML IVPB SCH (06:19)
[2018-10-12] MEDS: Famotidine 20 MG TAB PO SCH ×2 (08:34→20:30)
[2018-10-12] MEDS: Atenolol 50 MG TAB PO SCH (08:34)
--- NOTE | 2018-10-12 10:36 | ECHO ---
TRANSESOPHAGEAL ECHOCARDIOGRAM: DATE OF PROCEDURE: 10/11/18 INDICATION: 78-year-old woman with paroxysmal atrial fibrillation. DESCRIPTION OF PROCEDURE: The patient was taken to the PACU. The patient was sedated by anesthesiology. A transesophageal probe was placed in the distal esophagus and stomach. Echocardiographic images were obtained. The transesophageal probe was removed. FINDINGS: 1. Normal left ventricular systolic function. 2. Normal mitral and aortic valves. 3. Mild mitral regurgitation. 4. Severe tricuspid regurgitation. 5. Spontaneous contrast noted in both the left and right atrium. 6. Prethrombus noted in the left atrium. 7. Atherosclerotic debris in the descending aorta. IMPRESSION: Spontaneous contrast in both atrium with probable prethrombus in the left atrial appendage.
--- NOTE | 2018-10-12 14:21 | PDOC.PN ---
- Subjective Encounter Start Date: 10/12/18 Encounter Start Time: 08:00 Pt seen for followup re: atrial fibrillation. Feels better. - Objective Resuscitation Status - Order Detail: 10/08/18 15:48 Resuscitation Status Routine Resuscitation Status: FULL: Full Resuscitation MAR Reviewed: Yes Vital Signs & Weight: Vital Signs (12 hours) Temp Pulse Resp BP Pulse Ox 10/12/18 12:39 97.4 F L 96 16 127/83 97 10/12/18 08:34 101 H 10/12/18 07:40 96.9 F L 101 H 18 130/85 98 10/12/18 03:27 97.9 F 100 16 137/92 H 96 Weight Weight 168 lb 3.2 oz I&O: 10/11/18 10/12/18 10/13/18 06:59 06:59 06:59 Intake Total 1122 2401 Output Total 100 350 Balance 1022 2051 Result Diagrams: 10/11/18 05:51 10/11/18 05:51 EKG Reviewed by me: Yes (tele: kishore barlow) Phys Exam - Physical Examination Obese HEENT: moist MMs scleral icterus Neck: supple Respiratory: clear to auscultation bilateral Cardiovascular: irregular Gastrointestinal: soft Neurological: moves all 4 limbs Psychiatric: normal affect Dx/Plan (1) New onset a-fib Code(s): I48.91 - UNSPECIFIED ATRIAL FIBRILLATION Status: Acute Comment: rate-controlled (2) Thrombus of left atrial appendage Code(s): I51.3 - INTRACARDIAC THROMBOSIS, NOT ELSEWHERE CLASSIFIED Status: Acute Comment: On Lovenox injections (3) Acute cholecystitis Code(s): K81.0 - ACUTE CHOLECYSTITIS Status: Acute Comment: s/p cholecystectomy (4) Dyslipidemia Code(s): E78.5 - HYPERLIPIDEMIA, UNSPECIFIED Status: Chronic Comment: stable (5) HTN (hypertension) Code(s): I10 - ESSENTIAL (PRIMARY) HYPERTENSION Status: Chronic Qualifiers: Hypertension type: essential hypertension Qualified Code(s): I10 - Essential (primary) hypertension Comment: controlled (6) Hypothyroidism Code(s): E03.9 - HYPOTHYROIDISM, UNSPECIFIED Status: Chronic Qualifiers: Hypothyroidism type: unspecified Qualified Code(s): E03.9 - Hypothyroidism , unspecified - Plan * . Review of Systems - Review of Systems Respiratory: negative: Cough, Shortness of Breath, SOB with Excertion, Pleuritic Pain, Wheezing Cardiovascular: negative: chest pain, palpitations, orthopnea, paroxysmal nocturnal dyspnea, edema, light headedness - Medications/Allergies Allergies/Adverse Reactions: Allergies Allergy/AdvReac Type Severity Reaction Status Date / Time No Known Allergies Allergy Verified 10/09/18 03:59 Medications: Current Medications Atenolol (Tenormin) 50 mg PO DAILY [facility] Last Admin: 10/12/18 08:34 Dose: 50 mg Enoxaparin Sodium (Lovenox) 80 mg SC 0600,1800 [facility] Last Admin: 10/12/18 06:17 Dose: 80 mg Famotidine (Pepcid) 20 mg PO BID [facility] Last Admin: 10/12/18 08:34 Dose: 20 mg Sodium Chloride (Normal Saline 0.9%) 1,000 mls @ 40 mls/hr IV .Q24H [facility] Last Admin: 10/11/18 21:11 Dose: 1,000 mls Levothyroxine Sodium (Synthroid) 125 mcg PO 0600 [facility] Last Admin: 10/12/18 06:17 Dose: 125 mcg Melatonin (Melatonin) 6 mg PO HS PRN PRN Reason: Insomnia Last Admin: 10/08/18 23:37 Dose: 6 mg Ondansetron HCl (Zofran) 4 mg IVP Q6H PRN PRN Reason: Nausea/Vomiting Ramipril (Altace) 5 mg PO DAILY [facility] Tramadol HCl (Ultram) 50 mg PO Q6H PRN PRN Reason: Moderate Pain (4-6) Last Admin: 10/11/18 21:12 Dose: 50 mg Tramadol HCl (Ultram) 100 mg PO Q6H PRN PRN Reason: Severe Pain (7-10)
[2018-10-13] MEDS: Levothyroxine Sodium 125 MCG TAB PO SCH (05:43)
[2018-10-13] MEDS: Enoxaparin Sodium 80 MG/0.8 ML SYRINGE SC SCH ×2 (05:43→17:55)
[2018-10-13] MEDS: Atenolol 50 MG TAB PO SCH (08:29)
[2018-10-13] MEDS: Ramipril 5 MG CAP PO SCH (08:29)
[2018-10-13] MEDS: Famotidine 20 MG TAB PO SCH ×2 (08:29→21:03)
[2018-10-13 11:18] LABS: #Monocytes 1.1 thou/uL (0.11-0.59); #Neutrophils 6.9 thou/uL (1.40-6.50); %Basophils 0.3 % (0.0-1.0); %Eosinophils 0.5 % (0.0-10.0); %Lymphocytes 19.5 % (21.0-51.0); %Monocytes 10.9 % (0.0-10.0); %Neutrophils 68.9 % (42.0-75.0); Hemoglobin 14.1 g/dL (12.0-16.0); Mean Corpuscular HGB CONC 31.7 g/dL (32.0-36.0); Mean Corpuscular Hemoglobin 35.8 pg (27.0-31.0); Mean Platelet Volume 8.4 fL (7.4-10.4); Platelet Count 228 thou/uL (130-400); RBC Distribution Width 13.8 % (11.5-14.5); Red Blood Cell (RBC) Count 3.93 mill/uL (4.20-5.40)
[2018-10-13 11:36] LABS: ALT (SGPT) 148 U/L (8-55); AST (SGOT) 124 U/L (5-34); Albumin 3.6 g/dL (3.4-4.8); Alkaline Phosphatase 160 U/L (40-150); Anion Gap 17 mmol/L (10-20); BUN (Urea Nitrogen) 23 mg/dL (9.8-20.1); Bilirubin, Total 3.4 mg/dL (0.2-1.2); Calc. Creatinine Clearance 74 mL/min (70-130); Calcium 9.1 mg/dL (7.8-10.44); Carbon Dioxide 17 mmol/L (23-31); Chloride 106 mmol/L (98-107); Estimated GFR-MDRD 74; Globulin 2.5 g/dL (2.4-3.5); Glucose 119 mg/dL (83-110); Potassium 3.6 mmol/L (3.5-5.1); Protein, Total 6.1 g/dL (6.0-8.3); Sodium 136 mmol/L (136-145)
--- NOTE | 2018-10-13 13:21 | PDOC.PN ---
- Subjective Encounter Start Date: 10/13/18 Encounter Start Time: 08:20 Pt seen for followup re: kishore fib. Denies chest pain, shortness of breath, fevers or chills. - Objective Resuscitation Status - Order Detail: 10/08/18 15:48 Resuscitation Status Routine Resuscitation Status: FULL: Full Resuscitation MAR Reviewed: Yes Vital Signs & Weight: Vital Signs (12 hours) Temp Pulse Resp BP BP Pulse Ox 10/13/18 11:34 97.6 F 80 16 136/84 96 10/13/18 08:29 77 10/13/18 08:22 98.9 F 17 138/95 H 97 10/13/18 04:28 97.5 F L 77 20 140/82 96 Weight Weight 169 lb 1.6 oz I&O: 10/12/18 10/13/18 10/14/18 06:59 06:59 06:59 Intake Total 2401 1640 Output Total 350 650 Balance 2051 990 Result Diagrams: 10/13/18 10:55 10/13/18 10:55 EKG Reviewed by me: Yes (Tele: kishore barlow) Phys Exam - Physical Examination Constitutional: NAD HEENT: moist MMs Neck: supple Respiratory: clear to auscultation bilateral Cardiovascular: RRR Gastrointestinal: soft Neurological: moves all 4 limbs Psychiatric: normal affect Dx/Plan (1) New onset a-fib Code(s): I48.91 - UNSPECIFIED ATRIAL FIBRILLATION Status: Acute Comment: rate-controlled, atenolol (2) Thrombus of left atrial appendage Code(s): I51.3 - INTRACARDIAC THROMBOSIS, NOT ELSEWHERE CLASSIFIED Status: Acute Comment: continue Lovenox (3) Acute cholecystitis Code(s): K81.0 - ACUTE CHOLECYSTITIS Status: Acute Comment: s/p cholecystectomy (4) HTN (hypertension) Code(s): I10 - ESSENTIAL (PRIMARY) HYPERTENSION Status: Chronic Qualifiers: Hypertension type: essential hypertension Qualified Code(s): I10 - Essential (primary) hypertension Comment: controlled - Plan * . statin on hold until LFTs normalize Review of Systems - Review of Systems Cardiovascular: negative: chest pain, palpitations, orthopnea, paroxysmal nocturnal dyspnea, edema, light headedness Gastrointestinal: negative: Nausea, Vomiting, Abdominal Pain, Diarrhea, Constipation, Melena, Hematochezia - Medications/Allergies Allergies/Adverse Reactions: Allergies Allergy/AdvReac Type Severity Reaction Status Date / Time No Known Allergies Allergy Verified 10/09/18 03:59 Medications: Current Medications Atenolol (Tenormin) 50 mg PO DAILY [facility] Last Admin: 10/13/18 08:29 Dose: 50 mg Enoxaparin Sodium (Lovenox) 80 mg SC 0600,1800 [facility] Last Admin: 10/13/18 05:43 Dose: 80 mg Famotidine (Pepcid) 20 mg PO BID [facility] Last Admin: 10/13/18 08:29 Dose: 20 mg Levothyroxine Sodium (Synthroid) 125 mcg PO 0600 [facility] Last Admin: 10/13/18 05:43 Dose: 125 mcg Melatonin (Melatonin) 6 mg PO HS PRN PRN Reason: Insomnia Last Admin: 10/08/18 23:37 Dose: 6 mg Ondansetron HCl (Zofran) 4 mg IVP Q6H PRN PRN Reason: Nausea/Vomiting Ramipril (Altace) 5 mg PO DAILY [facility] Last Admin: 10/13/18 08:29 Dose: 5 mg Tramadol HCl (Ultram) 50 mg PO Q6H PRN PRN Reason: Moderate Pain (4-6) Last Admin: 10/11/18 21:12 Dose: 50 mg Tramadol HCl (Ultram) 100 mg PO Q6H PRN PRN Reason: Severe Pain (7-10) Last Admin: 10/12/18 20:30 Dose: 100 mg
[2018-10-14] MEDS: Enoxaparin Sodium 80 MG/0.8 ML SYRINGE SC SCH ×2 (05:56→18:30)
[2018-10-14] MEDS: Levothyroxine Sodium 125 MCG TAB PO SCH (05:56)
[2018-10-14 06:20] LABS: #Basophils 0.1 thou/uL (0.0-0.2); #Eosinphils 0.1 thou/uL (0.0-0.7); #Lymphocytes 3.2 thou/uL (1.20-3.40); #Neutrophils 5.4 thou/uL (1.40-6.50); %Basophils 0.6 % (0.0-1.0); %Eosinophils 0.7 % (0.0-10.0); %Lymphocytes 33.1 % (21.0-51.0); %Monocytes 9.8 % (0.0-10.0); %Neutrophils 55.9 % (42.0-75.0); Hemoglobin 14.5 g/dL (12.0-16.0); Mean Corpuscular HGB CONC 31.2 g/dL (32.0-36.0); Mean Corpuscular Hemoglobin 36.1 pg (27.0-31.0); Mean Platelet Volume 8.1 fL (7.4-10.4); Platelet Count 256 thou/uL (130-400); RBC Distribution Width 13.8 % (11.5-14.5); Red Blood Cell (RBC) Count 4.02 mill/uL (4.20-5.40); White Blood Cell (WBC) Count 9.7 thou/uL (4.8-10.8)
[2018-10-14 06:31] LABS: ALT (SGPT) 135 U/L (8-55); AST (SGOT) 113 U/L (5-34); Albumin 3.4 g/dL (3.4-4.8); Alkaline Phosphatase 190 U/L (40-150); Anion Gap 16 mmol/L (10-20); BUN (Urea Nitrogen) 18 mg/dL (9.8-20.1); Bilirubin, Total 3.2 mg/dL (0.2-1.2); Calc. Creatinine Clearance 78 mL/min (70-130); Calcium 9.1 mg/dL (7.8-10.44); Carbon Dioxide 20 mmol/L (23-31); Chloride 105 mmol/L (98-107); Estimated GFR-MDRD 78; Globulin 2.5 g/dL (2.4-3.5); Glucose 107 mg/dL (83-110); Potassium 3.6 mmol/L (3.5-5.1); Protein, Total 5.9 g/dL (6.0-8.3); Sodium 137 mmol/L (136-145)
[2018-10-14] MEDS: Ramipril 5 MG CAP PO SCH (09:48)
[2018-10-14] MEDS: Atenolol 50 MG TAB PO SCH (09:48)
[2018-10-14] MEDS: Famotidine 20 MG TAB PO SCH ×2 (09:49→20:57)
--- NOTE | 2018-10-14 10:43 | PRG ---
DATE OF SERVICE: 10/14/2018 SUBJECTIVE: Ms. Graham is feeling well. No complaints. She has been giving herself the Lovenox injections. OBJECTIVE: VITAL SIGNS: Her blood pressure is 146/90, pulse is in the 90s with atrial fibrillation. LUNGS: Clear. CARDIAC: Irregularly irregular. ABDOMEN: Soft and nontender. ASSESSMENT: 1. Atrial fibrillation relatively recent onset. 2. Left bundle-branch block, chronic. 3. Mildly depressed left ventricular function. 4. Intracardiac thrombus noted on transesophageal echo. 5. Abnormal liver function tests. PLAN: 1. She is on Lovenox. 2. Cannot be given Coumadin or Xarelto or Eliquis safely at this time due to the liver abnormality. 3. On atenolol for heart rate control. 4. Plan will be to bring her back in 3 to 4 weeks and do a transesophageal echo and cardiovert. If her liver tests are within normal limits, then could give her Eliquis. Otherwise, may need to consider whether she would be a candidate for some type of left atrial appendage occlusion device. This is complicated case. Job ID: [id number]
--- NOTE | 2018-10-14 13:06 | PDOC.PN ---
- Subjective Encounter Start Date: 10/14/18 Encounter Start Time: 07:40 Pt seen for followup re; physical deconditioning. Feels weak. - Objective Resuscitation Status - Order Detail: 10/08/18 15:48 Resuscitation Status Routine Resuscitation Status: FULL: Full Resuscitation MAR Reviewed: Yes Vital Signs & Weight: Vital Signs (12 hours) Temp Pulse Resp BP Pulse Ox 10/14/18 12:03 156/91 H 10/14/18 12:00 97.9 F 100 18 131/103 H 98 10/14/18 08:00 97.5 F L 110 H 20 146/90 H 97 10/14/18 04:00 98.5 F 97 16 142/87 H 96 Weight Weight 171 lb 3.2 oz I&O: 10/13/18 10/14/18 10/15/18 06:59 06:59 06:59 Intake Total 1640 480 Output Total 650 1100 Balance 990 -620 Result Diagrams: 10/14/18 05:54 10/14/18 05:54 EKG Reviewed by me: Yes (Tele: kishore barlow) Phys Exam - Physical Examination Obese HEENT: moist MMs Neck: supple Respiratory: clear to auscultation bilateral Cardiovascular: irregular Gastrointestinal: soft Neurological: moves all 4 limbs Psychiatric: normal affect Dx/Plan (1) Physical deconditioning Code(s): R53.81 - OTHER MALAISE Status: Acute Comment: SNU vs HH (2) New onset a-fib Code(s): I48.91 - UNSPECIFIED ATRIAL FIBRILLATION Status: Acute Comment: rate-controlled, continue atenolol (3) Thrombus of left atrial appendage Code(s): I51.3 - INTRACARDIAC THROMBOSIS, NOT ELSEWHERE CLASSIFIED Status: Acute Comment: on Lovenox (4) Acute cholecystitis Code(s): K81.0 - ACUTE CHOLECYSTITIS Status: Acute Comment: s/p cholecystectomy (5) HTN (hypertension) Code(s): I10 - ESSENTIAL (PRIMARY) HYPERTENSION Status: Chronic Qualifiers: Hypertension type: essential hypertension Qualified Code(s): I10 - Essential (primary) hypertension Comment: controlled - Plan * . Review of Systems - Review of Systems Constitutional: weakness Cardiovascular: negative: chest pain, palpitations, orthopnea, paroxysmal nocturnal dyspnea, edema, light headedness Gastrointestinal: negative: Nausea, Vomiting, Abdominal Pain, Diarrhea, Constipation, Melena, Hematochezia - Medications/Allergies Allergies/Adverse Reactions: Allergies Allergy/AdvReac Type Severity Reaction Status Date / Time No Known Allergies Allergy Verified 10/09/18 03:59 Medications: Current Medications Atenolol (Tenormin) 50 mg PO DAILY [facility] Last Admin: 10/14/18 09:48 Dose: 50 mg Enoxaparin Sodium (Lovenox) 80 mg SC 0600,1800 [facility] Last Admin: 10/14/18 05:56 Dose: 80 mg Famotidine (Pepcid) 20 mg PO BID [facility] Last Admin: 10/14/18 09:49 Dose: 20 mg Levothyroxine Sodium (Synthroid) 125 mcg PO 0600 [facility] Last Admin: 10/14/18 05:56 Dose: 125 mcg Melatonin (Melatonin) 6 mg PO HS PRN PRN Reason: Insomnia Last Admin: 10/08/18 23:37 Dose: 6 mg Ondansetron HCl (Zofran) 4 mg IVP Q6H PRN PRN Reason: Nausea/Vomiting Ramipril (Altace) 5 mg PO DAILY [facility] Last Admin: 10/14/18 09:48 Dose: 5 mg Tramadol HCl (Ultram) 50 mg PO Q6H PRN PRN Reason: Moderate Pain (4-6) Last Admin: 10/11/18 21:12 Dose: 50 mg Tramadol HCl (Ultram) 100 mg PO Q6H PRN PRN Reason: Severe Pain (7-10) Last Admin: 10/12/18 20:30 Dose: 100 mg
--- NOTE | 2018-10-15 04:36 | DIS ---
DATE OF ADMISSION: 10/08/2018 DATE OF DISCHARGE: 10/14/2018 PRIMARY CARE PROVIDER: Mohinder Augustin MD DISCHARGE DIAGNOSES: 1. New onset atrial fibrillation. 2. Chronic acalculous cholecystitis. 3. Physical deconditioning. 4. Left atrial appendage thrombus. 5. Abnormal liver function tests. 6. Bilious ascites secondary to liver cirrhosis. CONDITION OF PATIENT ON THE DAY OF DISCHARGE: Stable. I assessed Ms. Graham on the day of discharge. Please refer to my daily hospitalist progress note for further details regarding this asgb-ir-viod encounter. DISCHARGE MEDICATIONS: 1. Vitamin D3 of 3000 units daily. 2. Synthroid 125 mcg daily. 3. Atenolol 50 mg daily. 4. Lovenox 80 mg 2 times a day. 5. Ramipril 5 mg daily. 6. Melatonin 6 mg at bedtime as needed. 7. Tramadol 50 mg every 6 hours as needed. CONSULTATIONS DURING THIS HOSPITALIZATION: 1. Cardiology, Dr. Spaulding. 2. General Surgery, Dr. Saucedo. HOSPITAL COURSE: Ms. Graham is a pleasant 78-year-old lady, who was admitted to [facility] on October 08, 2018, for new onset atrial fibrillation with rapid ventricular response and possible acute cholecystitis. Please refer to Dr. Johnson's history and physical note for further details regarding this admission. HIDA scan on October 09 showed decreased gallbladder ejection fraction, which can be seen with biliary dyskinesis or chronic cholecystitis. There was no evidence of cystic or common bile duct obstruction. She was seen by General Surgery Service. On October 10, she underwent laparoscopic cholecystectomy. 2D echocardiogram done on October 09 showed mildly increased left ventricular size, left ventricular ejection fraction of 40% to 45%, and paradoxical septal motion due to left bundle branch block as well as atrial fibrillation. She continued to be in atrial fibrillation and initial plan was to cardiovert her electrically. She had SNEHAL on October 11, which showed probable pre-thrombus in the left atrial appendage. She was continued on Lovenox at therapeutic dose. The plan is to follow up with Cardiology Service during the next week to transition her to oral anticoagulation. She also became physically deconditioned during this hospitalization. She was evaluated by Therapy Services. She is being discharged to [facility] for further management. On the day of discharge, she has white count 9700, hemoglobin 14.5, platelet count 256,000, sodium 137, potassium 3.6, anion gap 16, creatinine 0.72, total bilirubin 3.2, AST 113, ALT 135, and alkaline phosphatase 190. Many thanks for allowing me to participate in your patient's care. Please feel free to contact me with any questions or concerns. Please note that the patient is advised to have her liver function test checked in 3 days. DISCHARGE DESTINATION: [facility]. TIME SPENT: Total amount of time spent coordinating this discharge: 33 minutes. Job ID: [id number]
[2018-10-15] MEDS: Enoxaparin Sodium 80 MG/0.8 ML SYRINGE SC SCH ×2 (05:44→19:45)
[2018-10-15] MEDS: Levothyroxine Sodium 125 MCG TAB PO SCH (05:44)
[2018-10-15 06:36] LABS: ALT (SGPT) 128 U/L (8-55); AST (SGOT) 115 U/L (5-34); Albumin 3.4 g/dL (3.4-4.8); Alkaline Phosphatase 198 U/L (40-150); Anion Gap 16 mmol/L (10-20); BUN (Urea Nitrogen) 15 mg/dL (9.8-20.1); Bilirubin, Total 3.8 mg/dL (0.2-1.2); Calc. Creatinine Clearance 88 mL/min (70-130); Calcium 9.2 mg/dL (7.8-10.44); Carbon Dioxide 18 mmol/L (23-31); Chloride 106 mmol/L (98-107); Estimated GFR-MDRD 90; Globulin 2.4 g/dL (2.4-3.5); Glucose 109 mg/dL (83-110); Potassium 3.5 mmol/L (3.5-5.1); Protein, Total 5.8 g/dL (6.0-8.3); Sodium 136 mmol/L (136-145)
[2018-10-15 06:44] LABS: Hemoglobin 14.6 g/dL (12.0-16.0); Lymphocytes 22 % (21-51); MDiff Complete? YES; Macrocytosis SLIGHT = 6-15 cells (100X) (0-5/hpf); Mean Corpuscular HGB CONC 32.3 g/dL (32.0-36.0); Mean Corpuscular Hemoglobin 36.6 pg (27.0-31.0); Mean Platelet Volume 8.1 fL (7.4-10.4); Monocytes 8 % (0-10); Neutrophil 68 % (42-75); Nucleated RBC 1 % (0); Platelet Count 248 thou/uL (130-400); Polychromasia SLIGHT = 2-3 cells (100X) (0-2/hpf); Reactive Lymphocytes 2 % (0-10); White Blood Cell (WBC) Count 7.7 thou/uL (4.8-10.8)
--- NOTE | 2018-10-15 08:12 | RAD ---
CHEST ONE VIEW: HISTORY: Wheezing. Shortness of breath. COMPARISON: 10/08/2018 FINDINGS: There are bilateral pleural effusions, larger on the right. There is cardiomegaly. Mild pulmonary v ascular congestion. No pneumothorax. IMPRESSION: 1. Cardiomegaly with effusions and pulmonary venous congestion. 2. Old right proximal humeral metadiaphyseal fracture. POS: [facility]
[2018-10-15] MEDS: Famotidine 20 MG TAB PO SCH ×2 (09:10→20:22)
[2018-10-15] MEDS: Atenolol 50 MG TAB PO SCH (09:10)
[2018-10-15] MEDS: Ramipril 5 MG CAP PO SCH (09:11)
[2018-10-15] MEDS ORDERED: Furosemide 40 MG/4 ML VIAL SLOW IVP SCH ×2 (09:30→17:15)
[2018-10-15] MEDS ORDERED: Potassium Chloride 20 MEQ TAB PO SCH (17:15)
--- NOTE | 2018-10-15 17:33 | PDOC.PN ---
- Subjective Encounter Start Date: 10/15/18 Encounter Start Time: 10:00 Pt seen for followup re: acute systolic CHF. Had shortness of breath last night , feels better now. - Objective Resuscitation Status - Order Detail: 10/08/18 15:48 Resuscitation Status Routine Resuscitation Status: FULL: Full Resuscitation MAR Reviewed: Yes Vital Signs & Weight: Vital Signs (12 hours) Temp Pulse Resp BP Pulse Ox 10/15/18 12:29 97.4 F L 88 16 140/73 99 10/15/18 08:00 97.9 F 118 H 16 135/96 H 96 Weight Weight 169 lb 12.8 oz I&O: 10/14/18 10/15/18 10/16/18 06:59 06:59 06:59 Intake Total 480 360 Output Total 1100 1300 1050 Balance -620 -940 -1050 Result Diagrams: 10/15/18 05:47 10/15/18 05:47 EKG Reviewed by me: Yes (Tele: aCeleste barlow) Phys Exam - Physical Examination Obese HEENT: moist MMs Neck: supple Respiratory: clear to auscultation bilateral Cardiovascular: irregular Gastrointestinal: soft Neurological: moves all 4 limbs Psychiatric: normal affect Dx/Plan (1) Acute systolic CHF (congestive heart failure), NYHA class 3 Code(s): I50.21 - ACUTE SYSTOLIC (CONGESTIVE) HEART FAILURE Status: Acute Comment: Not present on admission. Improved with diuretics. (2) Physical deconditioning Code(s): R53.81 - OTHER MALAISE Status: Acute Comment: approved for SNU (3) New onset a-fib Code(s): I48.91 - UNSPECIFIED ATRIAL FIBRILLATION Status: Acute Comment: persistent atrial fibrillation, rate-controlled (4) Thrombus of left atrial appendage Code(s): I51.3 - INTRACARDIAC THROMBOSIS, NOT ELSEWHERE CLASSIFIED Status: Acute Comment: continue Lovenox (5) Acute cholecystitis Code(s): K81.0 - ACUTE CHOLECYSTITIS Status: Acute Comment: s/p cholecystectomy (6) HTN (hypertension) Code(s): I10 - ESSENTIAL (PRIMARY) HYPERTENSION Status: Chronic Qualifiers: Hypertension type: essential hypertension Qualified Code(s): I10 - Essential (primary) hypertension Comment: controlled - Plan * . Review of Systems - Review of Systems Respiratory: negative: Cough, Shortness of Breath, SOB with Excertion, Pleuritic Pain, Wheezing Cardiovascular: negative: chest pain, palpitations, orthopnea, paroxysmal nocturnal dyspnea, edema, light headedness Gastrointestinal: negative: Nausea, Vomiting, Abdominal Pain, Diarrhea, Constipation, Melena, Hematochezia - Medications/Allergies Allergies/Adverse Reactions: Allergies Allergy/AdvReac Type Severity Reaction Status Date / Time No Known Allergies Allergy Verified 10/09/18 03:59 Medications: Current Medications Atenolol (Tenormin) 50 mg PO DAILY [facility] Last Admin: 10/15/18 09:10 Dose: 50 mg Enoxaparin Sodium (Lovenox) 80 mg SC 0600,1800 [facility] Last Admin: 10/15/18 05:44 Dose: 80 mg Famotidine (Pepcid) 20 mg PO BID [facility] Last Admin: 10/15/18 09:10 Dose: 20 mg Folic Acid (Folvite) 1 mg PO DAILY [facility] Furosemide (Lasix) 40 mg SLOW IVP NOW [facility] Stop: 10/15/18 19:15 Furosemide (Lasix) 40 mg PO DAILY-[facility] Levothyroxine Sodium (Synthroid) 125 mcg PO 0600 [facility] Last Admin: 10/15/18 05:44 Dose: 125 mcg Melatonin (Melatonin) 6 mg PO HS PRN PRN Reason: Insomnia Last Admin: 10/08/18 23:37 Dose: 6 mg Ondansetron HCl (Zofran) 4 mg IVP Q6H PRN PRN Reason: Nausea/Vomiting Potassium Chloride (K-Dur) 20 meq PO QA-[facility] Potassium Chloride (K-Dur) 20 meq PO NOW [facility] Stop: 10/15/18 19:15 Ramipril (Altace) 5 mg PO DAILY [facility] Last Admin: 10/15/18 09:11 Dose: 5 mg Thiamine HCl (Thiamine) 100 mg PO DAILY [facility] Tramadol HCl (Ultram) 50 mg PO Q6H PRN PRN Reason: Moderate Pain (4-6) Last Admin: 10/11/18 21:12 Dose: 50 mg Tramadol HCl (Ultram) 100 mg PO Q6H PRN PRN Reason: Severe Pain (7-10) Last Admin: 10/12/18 20:30 Dose: 100 mg
[2018-10-15] MEDS ORDERED: Milk Of Magnesia 30 ML UDCUP ONE (19:09)
[2018-10-16] MEDS: Levothyroxine Sodium 125 MCG TAB PO SCH (05:32)
[2018-10-16] MEDS: Enoxaparin Sodium 80 MG/0.8 ML SYRINGE SC SCH ×2 (05:32→17:21)
[2018-10-16 06:30] LABS: ALT (SGPT) 119 U/L (8-55); AST (SGOT) 95 U/L (5-34); Albumin 3.4 g/dL (3.4-4.8); Alkaline Phosphatase 194 U/L (40-150); Anion Gap 14 mmol/L (10-20); BUN (Urea Nitrogen) 14 mg/dL (9.8-20.1); Bilirubin, Total 4.4 mg/dL (0.2-1.2); Calc. Creatinine Clearance 74 mL/min (70-130); Calcium 9.5 mg/dL (7.8-10.44); Carbon Dioxide 28 mmol/L (23-31); Chloride 101 mmol/L (98-107); Estimated GFR-MDRD 76; Globulin 2.5 g/dL (2.4-3.5); Glucose 113 mg/dL (83-110); Potassium 3.2 mmol/L (3.5-5.1); Protein, Total 5.9 g/dL (6.0-8.3); Sodium 140 mmol/L (136-145)
[2018-10-16 06:46] LABS: #Eosinphils 0.1 thou/uL (0.0-0.7); #Lymphocytes 2.9 thou/uL (1.20-3.40); #Monocytes 1.1 thou/uL (0.11-0.59); #Neutrophils 4.4 thou/uL (1.40-6.50); %Basophils 0.5 % (0.0-1.0); %Eosinophils 0.7 % (0.0-10.0); %Lymphocytes 34.2 % (21.0-51.0); %Monocytes 12.6 % (0.0-10.0); %Neutrophils 51.8 % (42.0-75.0); Hemoglobin 14.6 g/dL (12.0-16.0); MDiff Complete? YES; Macrocytosis SLIGHT = 6-15 cells (100X) (0-5/hpf); Mean Corpuscular HGB CONC 32.6 g/dL (32.0-36.0); Mean Corpuscular Hemoglobin 36.8 pg (27.0-31.0); Mean Platelet Volume 8.3 fL (7.4-10.4); Platelet Count 259 thou/uL (130-400); Platelet Morphology Comment Appears Adequate; Polychromasia MODERATE = 3-4 cells (100X) (0-2/hpf); RBC Distribution Width 14.1 % (11.5-14.5); Red Blood Cell (RBC) Count 3.97 mill/uL (4.20-5.40); White Blood Cell (WBC) Count 8.4 thou/uL (4.8-10.8)
[2018-10-16] MEDS: Famotidine 20 MG TAB PO SCH ×2 (08:44→19:56)
[2018-10-16] MEDS: Folic Acid 1 MG TAB PO SCH (08:44)
[2018-10-16] MEDS: Atenolol 50 MG TAB PO SCH (08:44)
[2018-10-16] MEDS: Furosemide 40 MG TAB PO SCH (08:44)
[2018-10-16] MEDS: Ramipril 5 MG CAP PO SCH (08:44)
[2018-10-16] MEDS: Potassium Chloride 20 MEQ TAB PO SCH (08:44)
[2018-10-16] MEDS: Thiamine 100 MG TAB PO SCH (08:44)
[2018-10-16] MEDS: Milk Of Magnesia 30 ML UDCUP PO SCH (08:45)
[2018-10-16] MEDS ORDERED: Atenolol 50 MG TAB PO SCH (09:30)
[2018-10-16] MEDS ORDERED: Metoprolol Tartrate 5 MG/5 ML VIAL IVP SCH (09:30)
--- NOTE | 2018-10-16 15:56 | PDOC.PN ---
- Subjective Encounter Start Date: 10/16/18 Encounter Start Time: 08:00 Pt seen for followup re: acute systolic CHF. Says she feels well. - Objective Resuscitation Status - Order Detail: 10/08/18 15:48 Resuscitation Status Routine Resuscitation Status: FULL: Full Resuscitation MAR Reviewed: Yes Vital Signs & Weight: Vital Signs (12 hours) Temp Pulse Resp BP BP BP Pulse Ox 10/16/18 11:53 108 H 16 141/89 H 96 10/16/18 09:55 99 148/91 H 10/16/18 08:44 125 H 146/97 H 10/16/18 08:12 97.7 F 125 H 16 146/97 H 97 10/16/18 04:00 97.9 F 114 H 18 138/90 99 Weight Weight 164 lb 6.4 oz I&O: 10/15/18 10/16/18 10/17/18 06:59 06:59 06:59 Intake Total 360 400 Output Total 1300 4850 Balance -940 -4450 Result Diagrams: 10/16/18 05:30 10/16/18 05:30 EKG Reviewed by me: Yes (Tele: a. fib with RVR) Phys Exam - Physical Examination Constitutional: NAD HEENT: moist MMs Neck: supple Respiratory: clear to auscultation bilateral Cardiovascular: irregular tachycardia Gastrointestinal: soft Neurological: moves all 4 limbs Psychiatric: normal affect Dx/Plan (1) Acute systolic CHF (congestive heart failure), NYHA class 3 Code(s): I50.21 - ACUTE SYSTOLIC (CONGESTIVE) HEART FAILURE Status: Acute Comment: Improved with furosemide. (2) Physical deconditioning Code(s): R53.81 - OTHER MALAISE Status: Acute Comment: approved for SNU (3) New onset a-fib Code(s): I48.91 - UNSPECIFIED ATRIAL FIBRILLATION Status: Acute Comment: rvr , beta dre dose increased (4) Thrombus of left atrial appendage Code(s): I51.3 - INTRACARDIAC THROMBOSIS, NOT ELSEWHERE CLASSIFIED Status: Acute Comment: continue Lovenox (5) Acute cholecystitis Code(s): K81.0 - ACUTE CHOLECYSTITIS Status: Acute Comment: s/p cholecystectomy (6) HTN (hypertension) Code(s): I10 - ESSENTIAL (PRIMARY) HYPERTENSION Status: Chronic Qualifiers: Hypertension type: essential hypertension Qualified Code(s): I10 - Essential (primary) hypertension Comment: controlled - Plan * . Review of Systems - Review of Systems Respiratory: SOB with Excertion. negative: Cough, Shortness of Breath, Pleuritic Pain, Wheezing Cardiovascular: negative: chest pain, palpitations, orthopnea, paroxysmal nocturnal dyspnea, edema, light headedness - Medications/Allergies Allergies/Adverse Reactions: Allergies Allergy/AdvReac Type Severity Reaction Status Date / Time No Known Allergies Allergy Verified 10/09/18 03:59 Medications: Current Medications Atenolol (Tenormin) 100 mg PO DAILY [facility] Enoxaparin Sodium (Lovenox) 80 mg SC 0600,1800 [facility] Last Admin: 10/16/18 05:32 Dose: 80 mg Famotidine (Pepcid) 20 mg PO BID [facility] Last Admin: 10/16/18 08:44 Dose: 20 mg Folic Acid (Folvite) 1 mg PO DAILY [facility] Last Admin: 10/16/18 08:44 Dose: 1 mg Furosemide (Lasix) 40 mg PO DAILY-AC [facility] Last Admin: 10/16/18 08:44 Dose: 40 mg Levothyroxine Sodium (Synthroid) 125 mcg PO 0600 [facility] Last Admin: 10/16/18 05:32 Dose: 125 mcg Magnesium Hydroxide (Milk Of Magnesium) 30 ml PO DAILY [facility] Last Admin: 10/16/18 08:45 Dose: Not Given Melatonin (Melatonin) 6 mg PO HS PRN PRN Reason: Insomnia Last Admin: 10/08/18 23:37 Dose: 6 mg Ondansetron HCl (Zofran) 4 mg IVP Q6H PRN PRN Reason: Nausea/Vomiting Potassium Chloride (K-Dur) 20 meq PO QAM-WM [facility] Last Admin: 10/16/18 08:44 Dose: 20 meq Ramipril (Altace) 5 mg PO DAILY [facility] Last Admin: 10/16/18 08:44 Dose: 5 mg Thiamine HCl (Thiamine) 100 mg PO DAILY [facility] Last Admin: 10/16/18 08:44 Dose: 100 mg Tramadol HCl (Ultram) 50 mg PO Q6H PRN PRN Reason: Moderate Pain (4-6) Last Admin: 10/11/18 21:12 Dose: 50 mg Tramadol HCl (Ultram) 100 mg PO Q6H PRN PRN Reason: Severe Pain (7-10) Last Admin: 10/12/18 20:30 Dose: 100 mg
[2018-10-17] MEDS: Enoxaparin Sodium 80 MG/0.8 ML SYRINGE SC SCH (05:36)
[2018-10-17] MEDS: Levothyroxine Sodium 125 MCG TAB PO SCH (05:39)
[2018-10-17] MEDS: Ramipril 5 MG CAP PO SCH (08:13)
[2018-10-17] MEDS: Famotidine 20 MG TAB PO SCH (08:13)
[2018-10-17] MEDS: Potassium Chloride 20 MEQ TAB PO SCH (08:14)
[2018-10-17] MEDS: Thiamine 100 MG TAB PO SCH (08:14)
[2018-10-17] MEDS: Milk Of Magnesia 30 ML UDCUP PO SCH (08:14)
[2018-10-17] MEDS: Folic Acid 1 MG TAB PO SCH (08:14)
[2018-10-17] MEDS: Furosemide 40 MG TAB PO SCH (08:14)
[2018-10-17] MEDS ORDERED: Atenolol 50 MG TAB PO SCH (09:00)
[2018-10-17 13:28] VITALS: BP 133/76; TEMP 98.3
--- NOTE | 2018-10-17 21:06 | DIS ---
DATE OF ADMISSION: 10/08/2018 DATE OF DISCHARGE: 10/17/2018 PRIMARY CARE PROVIDER: Dr. Vines. DISCHARGE DIAGNOSES: 1. New onset atrial fibrillation. 2. Chronic acalculous cholecystitis. 3. Physical deconditioning. 4. Left atrial appendage thrombus. 5. Abnormal liver function tests. 6. Bilious ascites secondary to liver cirrhosis. 7. Acute systolic congestive heart failure, NYHA class III, ACC-AHA class C. Please note that I dictated another discharge summary for this hospitalization on 10/14/2018. The patient did not leave that day because she was found to be in acute systolic congestive heart failure. She was treated with furosemide and improved. Her atenolol dose was increased. She has been started on oral furosemide and potassium supplementation. CONDITION OF PATIENT ON THE DAY OF DISCHARGE: Stable. I assessed Ms. Graham on the day of discharge. She denies any chest pain or shortness of breath. Vital signs are stable. S1 and S2 are heard, irregular. Lungs are clear to auscultation bilaterally. CONSULTATIONS DURING THIS HOSPITALIZATION: As dictated on my discharge summary dated 10/14/2018. HOSPITAL COURSE: As dictated on discharge summary dated 10/14/2018. The patient did not go to [facility] that day because of shortness of breath secondary to acute systolic congestive heart failure. She improved clinically after receiving Lasix. She is being discharged to [facility]. DISCHARGE MEDICATIONS: 1. Vitamin D3 3000 units daily. 2. Synthroid 125 mcg daily. 3. Atenolol 100 mg daily. 4. Lovenox 80 mg 2 times a day. 5. Pepcid 20 mg 2 times a day. 6. Folic acid 1 mg daily. 7. Furosemide 40 mg daily. 8. Melatonin 6 mg at bedtime as needed. 9. Potassium chloride 10 mEq daily. 10. Ramipril 5 mg daily. 11. Tramadol 50 mg every 6 hours as needed. Many thanks for allowing me to participate in your patient's care. Please feel free to contact me with any questions or concerns. DISCHARGE DESTINATION: [facility]. TOTAL AMOUNT OF TIME SPENT COORDINATING THIS DISCHARGE: 19 minutes. Job ID: [id number]
--- NOTE | 2018-10-19 21:45 | EKG ---
Test Reason : A FIB Blood Pressure : / mmHG Vent. Rate : 133 BPM Atrial Rate : 133 BPM P-R Int : 000 ms QRS Dur : 150 ms QT Int : 348 ms P-R-T Axes : 000 -36 136 degrees QTc Int : 517 ms Atrial fibrillation with rapid ventricular response Left axis deviation Left bundle branch block Abnormal ECG Confirmed by ZANE SANFORD ([id number]), editor at large JOHNNIE KAUR ([id number]) on 10/19/2018 9:45:03 PM Referred By: Confirmed By:ZANE SANFORD
== END 2018-10-17 13:25 | DRG 417 ==
LOC: ERS 12:32 → 2NO 20:12
PROVIDERS: ADMIT Internal Medicine; ATTEND Internal Medicine
PROC: 0FT44ZZ Resection of Gallbladder, Percutaneous Endoscopic Approach (ICD-10-PCS; principal; 2018-10-10)
PROC: B246ZZ4 Ultrasonography of Right and Left Heart, Transesophageal (ICD-10-PCS; 2018-10-11)
DX: K81.1 Chronic cholecystitis (principal); I50.21 Acute systolic (congestive) heart failure; R18.8 Other ascites; I11.0 Hypertensive heart disease with heart failure; I48.91 Unspecified atrial fibrillation; E03.9 Hypothyroidism, unspecified; E78.5 Hyperlipidemia, unspecified; I51.3 Intracardiac thrombosis, not elsewhere classified; I25.10 Atherosclerotic heart disease of native coronary artery without angina pectoris; K74.60 Unspecified cirrhosis of liver; I44.7 Left bundle-branch block, unspecified; I34.0 Nonrheumatic mitral (valve) insufficiency; I35.1 Nonrheumatic aortic (valve) insufficiency; R53.81 Other malaise; Z79.899 Other long term (current) drug therapy; Z87.11 Personal history of peptic ulcer disease
CPT/HCPCS: 36415; 71045; 78227; 80048; 80053; 80061; 80074; 80076; 83690; 83735; 83880; 84100; 84484; 85025; 88304; 92960; 93005; 93306; 93312; 94640; 96361; 96365; A9537; J1100; J1650; J1885; J1940; J2001; J2405; J2543; J2704; J2765; J3010; J7050; J7620; Q9961; S0028

== ENCOUNTER 2018-11-06 10:38 | Day surgery (SDC) | payer MEDICARE, BC ==
[2018-11-05 16:56] VITALS: BMI 26.2
[2018-11-06 11:43] LABS: #Eosinphils 0.1 thou/uL (0.0-0.7); #Lymphocytes 2.4 thou/uL (1.20-3.40); #Monocytes 0.6 thou/uL (0.11-0.59); #Neutrophils 2.2 thou/uL (1.40-6.50); %Basophils 0.6 % (0.0-1.0); %Eosinophils 1.4 % (0.0-10.0); %Monocytes 11.3 % (0.0-10.0); %Neutrophils 41.7 % (42.0-75.0); Hemoglobin 13.7 g/dL (12.0-16.0); Mean Corpuscular Hemoglobin 35.4 pg (27.0-31.0); Platelet Count 204 thou/uL (130-400); RBC Distribution Width 12.1 % (11.5-14.5); Red Blood Cell (RBC) Count 3.87 mill/uL (4.20-5.40); White Blood Cell (WBC) Count 5.2 thou/uL (4.8-10.8)
[2018-11-06 11:47] LABS: PTT 35.4 SEC (22.9-36.1); Prothrombin Time 13.6 SEC (12.0-14.7)
[2018-11-06] MEDS ORDERED: PROPOFOL 20 ML ONE (11:57)
[2018-11-06 12:05] LABS: Anion Gap 15 mmol/L (10-20); BUN (Urea Nitrogen) 11 mg/dL (9.8-20.1); Calc. Creatinine Clearance 70 mL/min (70-130); Calcium 9.9 mg/dL (7.8-10.44); Carbon Dioxide 27 mmol/L (23-31); Chloride 102 mmol/L (98-107); Estimated GFR-MDRD 77; Glucose 96 mg/dL (83-110); Potassium 3.3 mmol/L (3.5-5.1); Sodium 141 mmol/L (136-145)
--- NOTE | 2018-11-06 13:07 | OP ---
DATE OF PROCEDURE: 11/06/2018 PROCEDURE PERFORMED: Transesophageal echo. INDICATION FOR PROCEDURE: A 78-year-old woman with paroxysmal atrial fibrillation. DESCRIPTION OF PROCEDURE: The patient was taken to the PACU. The patient sedated by Anesthesiology. A transesophageal probe was placed into the distal esophagus and stomach. Echocardiographic images were obtained. The transesophageal probe was removed. FINDINGS: 1. Normal left ventricular systolic function. 2. Marked left atrial enlargement. 3. Left ventricle is not dilated. 4. [id number] mitral regurgitation. 5. Mild tricuspid regurgitation. 6. No thrombus is noted in the left atrium or left atrial appendage. 7. Atherosclerotic debris in the descending aorta. IMPRESSION: No formed thrombus in the left atrium or left atrial appendage. Job ID: [id number]
[2018-11-06] MEDS ORDERED: Melatonin 3 MG TAB PO PRN (13:16)
[2018-11-06] MEDS ORDERED: Potassium Chloride 20 MEQ TAB PO SCH (13:30)
--- NOTE | 2018-11-06 16:58 | OP ---
DATE OF PROCEDURE: 11/06/18 PROCEDURE: Cardioversion. The patient is brought to the post cath area in the fasting state. She was sedated by the maintenance dispatcher . Transesophageal echocardiogram revealed no evidence of any thrombus. She was given one dose of 200 joules direct current energy and converted to sinus rhythm initially with frequent PACs. ASSESSMENT: 1. Successful cardioversion. 2. Patient's liver function test had improved. The ALT is all the way down to 38. AST to 36. Nor mal being up to 34. These were dramatically improved. PT and PTT are normal. Therefore we will take h er off the Lovenox and put her on Eliquis 5 mg twice a day. See her back in the office in a couple of weeks. Also will give her some potassium. It is 3.3 today.
[2018-11-06] MEDS ORDERED: Apixaban 5 MG TAB PO SCH (21:00)
[2018-11-07] MEDS ORDERED: Levothyroxine Sodium 125 MCG TAB PO SCH (06:00)
[2018-11-07] MEDS ORDERED: Potassium Chloride 20 MEQ TAB PO SCH (09:00)
[2018-11-07] MEDS ORDERED: Folic Acid 1 MG TAB PO SCH (09:00)
[2018-11-07] MEDS ORDERED: Atenolol 50 MG TAB PO SCH (09:00)
[2018-11-07] MEDS ORDERED: Furosemide 20 MG TAB PO SCH (09:00)
[2018-11-07] MEDS ORDERED: Famotidine 20 MG TAB PO SCH (09:00)
== END 2018-11-06 14:31 | disposition home or self-care (01) ==
LOC: CCL 10:38
PROVIDERS: ATTEND Internal Medicine Cardiovascular Disease
PROC: 5A2204Z Restoration of Cardiac Rhythm, Single (ICD-10-PCS; principal; 2018-11-06)
PROC: B24BZZ4 Ultrasonography of Heart with Aorta, Transesophageal (ICD-10-PCS; 2018-11-06)
DX: I48.0 Paroxysmal atrial fibrillation (principal); I70.0 Atherosclerosis of aorta; I25.10 Atherosclerotic heart disease of native coronary artery without angina pectoris; E78.00 Pure hypercholesterolemia, unspecified; I44.7 Left bundle-branch block, unspecified; I35.1 Nonrheumatic aortic (valve) insufficiency; I36.1 Nonrheumatic tricuspid (valve) insufficiency; K74.60 Unspecified cirrhosis of liver; I48.1 Persistent atrial fibrillation; I11.0 Hypertensive heart disease with heart failure; I50.22 Chronic systolic (congestive) heart failure; R79.89 Other specified abnormal findings of blood chemistry; Z79.899 Other long term (current) drug therapy
CPT/HCPCS: 36415; 80048; 85025; 85610; 85730; 93005; 93010; 93312; J2704

== ENCOUNTER 2019-03-05 09:05 | Outpatient (CLI) | payer MEDICARE, BC ==
--- NOTE | 2019-03-05 10:22 | MRI ---
EXAM: MRI of the abdomen without and with contrast COMPARISON: None HISTORY: Abnormal imaging of the liver with changes suspicious for cirrhosis TECHNIQUE: Multiplanar multi sequence MR images were taken of the abdomen without and with IV contras t. An MRCP was performed. FINDINGS: Liver: No focal liver lesions or intrahepatic ductal dilatation. Normal signal without dropout on out of phase images. The liver has a smooth contour without evidence of cirrhosis. Gallbladder: Absent Common bile duct: Normal caliber without filling defects Adrenal glands: Unremarkable. Kidneys: 10 mm left renal cyst. No right renal abnormality. Spleen: Unremarkable. Pancreas: Unremarkable. Retroperitoneum: No enlarged lymph nodes Bones: No marrow signal abnormality. IMPRESSION: 1. No significant hepatic abnormality. 2. Left renal cyst
== END 2019-03-05 09:06 | disposition home or self-care (01) ==
LOC: BICMRI 09:05
PROVIDERS: ATTEND Internal Medicine Gastroenterology
DX: R93.2 Abnormal findings on diagnostic imaging of liver and biliary tract (principal); R19.7 Diarrhea, unspecified; N28.1 Cyst of kidney, acquired
CPT/HCPCS: 74183; 82565

== ENCOUNTER 2021-08-01 19:15 | Inpatient (IN) | payer MEDICARE, BC ==
[2021-08-01 20:07] LABS: #Lymphocytes 2.2 thou/uL (1.20-3.40); #Neutrophils 5.8 thou/uL (1.40-6.50); %Basophils 0.4 % (0.0-1.0); %Eosinophils 0.4 % (0.0-10.0); %Lymphocytes 24.2 % (21.0-51.0); %Monocytes 11.4 % (0.0-10.0); %Neutrophils 63.6 % (42.0-75.0); Hemoglobin 16.1 g/dL (12.0-16.0); Mean Corpuscular HGB CONC 32.8 g/dL (32.0-36.0); Mean Corpuscular Hemoglobin 34.7 pg (27.0-31.0); Mean Platelet Volume 8.4 fL (7.4-10.4); Platelet Count 143 thou/uL (130-400); RBC Distribution Width 13.9 % (11.5-14.5); Red Blood Cell (RBC) Count 4.64 mill/uL (4.20-5.40); White Blood Cell (WBC) Count 9.1 thou/uL (4.8-10.8)
[2021-08-01] MEDS ORDERED: Ondansetron PF 4 MG/2 ML Vial ONE ×2 (20:13→21:04)
[2021-08-01 20:24] LABS: INR-International Normal Ratio 2.7; PTT 41.5 sec (22.9-36.1); Prothrombin Time 29.4 sec (12.0-14.7)
[2021-08-01 20:26] LABS: MDiff Complete? YES; Macrocytosis SLIGHT = 6-15 cells (100X) (0-5/hpf); Platelet Morphology Comment Appears Adequate; Polychromasia SLIGHT = 2-3 cells (100X) (0-2/hpf)
[2021-08-01] MEDS ORDERED: Atropine Sulfate 1 mg/10 ml Syringe ONE ×2 (20:48→21:42)
[2021-08-01 21:17] LABS: ALT (SGPT) 31 U/L (8-55); AST (SGOT) 45 U/L (5-34); Albumin 3.7 g/dL (3.4-4.8); Alkaline Phosphatase 191 U/L (40-110); Anion Gap 22 mmol/L (10-20); BUN (Urea Nitrogen) 22 mg/dL (9.8-20.1); Bilirubin, Total 4.5 mg/dL (0.2-1.2); Calc. Creatinine Clearance 0 mL/min (70-130); Carbon Dioxide 17 mmol/L (23-31); Chloride 99 mmol/L (98-107); Globulin 3.1 g/dL (2.4-3.5); Glucose 103 mg/dL (83-110); Potassium 4.7 mmol/L (3.5-5.1); Protein, Total 6.8 g/dL (5.8-8.1); Sodium 133 mmol/L (136-145)
[2021-08-01 21:42] LABS: Bilirubin Negative (Negative); Blood, Urine 2+ (Negative); Clarity Clear (Clear); Glucose, Urine (Dipstick) Normal (Negative); Ketone, Urine Negative (Negative); Leukocyte Negative Leu/uL (Negative); Nitrite Negative (Negative); Protein, Urine (Dipstick) 30 mg/dL (Neg-Trace); RBC/HPF 0-3 HPF (0-3); Specific Gravity, Urine 1.043 (1.002-1.036); Squamous Epithelial 0-3 HPF (0-3); Urobilinogen 3 mg/dL (Less than 2); pH, Urine 5.5 (5.0-9.0)
[2021-08-01 21:51] LABS: Bacteria/HPF Rare-Few HPF (None Seen); WBC/HPF 0-3 HPF (0-3)
[2021-08-01 22:15] LABS: Actual Bicarbonate (HCO3a) 10.2 mEq/L (22-28); Analyzer IN Cardio ER; Base Excess (BEa) -11.9 mEq/L (-2.0 to +3.0); Calcium, Ionized (arterial) 1.09 mmol/L (1.12-1.30); Carboxyhemoglobin (COHb) 0.2 gm% (0.0-3.0); Hemoglobin (Hb) 14.7 g/dL (12.0-16.0); Potassium - ABG Lab 4.53 mmol/L (3.70-5.30); pH, Arterial 7.39 (7.35-7.45)
[2021-08-01 22:16] LABS: CO2 Tension 17.3 mmHg (35.0-45.0)
[2021-08-01 22:17] LABS: ALV-art Gradient 414.075 mmHg (0-20); Puncture Site RRA
[2021-08-01] MEDS ORDERED: VANCOMYCIN 1.25 GM/250 ML BAG 1.25 GM in Premix Bag 1 BAG IVPB SCH ×2 (22:33→23:30)
[2021-08-01] MEDS ORDERED: Cefepime 2 GM in Sodium Chloride 0.9% 100 ML IVPB SCH ×2 (22:33→23:30)
[2021-08-01] MEDS ORDERED: Sodium Chloride 0.9% 1,000 ML IV SCH (22:45)
[2021-08-01] MEDS ORDERED: OLANZapine 10 MG VIAL IM SCH (22:45)
[2021-08-01] MEDS ORDERED: Ondansetron PF 4 MG/2 ML Vial IVP PRN (22:45)
[2021-08-01] MEDS ORDERED: Ondansetron ODT 4 MG TAB PO PRN (22:45)
[2021-08-01] MEDS ORDERED: Acetaminophen 650 MG Suppository PR PRN (22:45)
[2021-08-01] MEDS ORDERED: Acetaminophen 325 MG TAB PO PRN (22:45)
[2021-08-01] MEDS ORDERED: Sterile Water 10 ML VIAL FS PRN (23:45)
[2021-08-02 00:27] LABS: Troponin I 0.018 ng/mL (< 0.028)
[2021-08-02] MEDS ORDERED: metroNIDAZOLE 500 MG in Premix Bag 1 BAG IVPB SCH (00:46)
[2021-08-02 00:49] LABS: SARS-CoV-2 NAA Rapid Test Not Detected (NotDetected)
[2021-08-02] MEDS: Sodium Chloride 0.9% 1,000 ML IV SCH ×2 (01:08→06:19)
[2021-08-02] MEDS ORDERED: Piperacillin/Tazobactam 3.375 GM in Sodium Chloride 0.9% 100 ML IVPB SCH (01:15)
[2021-08-02 02:18] LABS: Anion Gap 24 mmol/L (10-20); BUN (Urea Nitrogen) 22 mg/dL (9.8-20.1); Calc. Creatinine Clearance 27 mL/min (70-130); Calcium 9.8 mg/dL (7.8-10.44); Carbon Dioxide 14 mmol/L (23-31); Chloride 101 mmol/L (98-107); Potassium 4.7 mmol/L (3.5-5.1); Sodium 134 mmol/L (136-145)
[2021-08-02 02:23] LABS: Troponin I 0.017 ng/mL (< 0.028)
[2021-08-02 02:27] LABS: Glucose 59 mg/dL (83-110)
[2021-08-02] MEDS ORDERED: Dextrose 50% Abboject 50 ML SYRINGE SLOW IVP PRN (02:32)
[2021-08-02] MEDS ORDERED: Dextrose 5% in Water 1,000 ML IV PRN (02:32)
[2021-08-02] MEDS ORDERED: Dextrose 50% Abboject 50 ML SYRINGE ONE (02:43)
[2021-08-02] MEDS ORDERED: Dextrose 50% Abboject 50 ML SYRINGE SLOW IVP SCH (03:00)
[2021-08-02] MEDS: Dextrose 10% in Water 1,000 ML IV SCH ×2 (04:12→04:52)
[2021-08-02] MEDS ORDERED: Sodium Chloride 0.9% 500 ML IV SCH (04:45)
[2021-08-02 05:12] LABS: ALT (SGPT) 68 U/L (8-55); AST (SGOT) 107 U/L (5-34); Albumin 3.3 g/dL (3.4-4.8); Alkaline Phosphatase 174 U/L (40-110); Bilirubin, Total 4.8 mg/dL (0.2-1.2); Globulin 2.5 g/dL (2.4-3.5); Magnesium 1.8 mg/dL (1.6-2.6); Phosphorus 4.4 mg/dL (2.3-4.7); Protein, Total 5.8 g/dL (5.8-8.1)
[2021-08-02 05:14] LABS: #Basophils 0.1 thou/uL (0.0-0.2); #Lymphocytes 1.2 thou/uL (1.20-3.40); #Monocytes 1.8 thou/uL (0.11-0.59); #Neutrophils 11.3 thou/uL (1.40-6.50); %Basophils 0.4 % (0.0-1.0); %Eosinophils 0.2 % (0.0-10.0); %Monocytes 12.5 % (0.0-10.0); %Neutrophils 78.8 % (42.0-75.0); Hemoglobin 13.2 g/dL (12.0-16.0); Mean Corpuscular HGB CONC 31.8 g/dL (32.0-36.0); Mean Corpuscular Hemoglobin 33.8 pg (27.0-31.0); Mean Platelet Volume 9.3 fL (7.4-10.4); Platelet Count 116 thou/uL (130-400); Platelet Morphology Comment Appears Decreased; RBC Distribution Width 14.1 % (11.5-14.5); White Blood Cell (WBC) Count 14.4 thou/uL (4.8-10.8)
[2021-08-02] MEDS: Piperacillin/Tazobactam 3.375 GM in Sodium Chloride 0.9% 100 ML IVPB SCH ×3 (05:21→21:13)
[2021-08-02] MEDS: DOBUTamine 500 mg/250 ml 250 ML IVPB SCH (09:09)
[2021-08-02 09:48] LABS: Bilirubin, Direct 3.4 mg/dL (0.1-0.3); Bilirubin, Total 4.8 mg/dL (0.2-1.2)
[2021-08-02] MEDS: Sodium Bicarbonate 150 MEQ in Dextrose 5% in Water 1,000 ML IV SCH ×2 (11:12→21:11)
[2021-08-02 12:41] LABS: Creatinine, Urine 64.09 mg/dL (47-110)
[2021-08-02] MEDS ORDERED: DOPamine 400 MG/D5W 250 ML 250 ML IVPB SCH (14:00)
[2021-08-02] MEDS: Vancomycin 1 GM in Premix Bag 1 BAG IVPB SCH (20:16)
[2021-08-03] MEDS: Dextrose 10% in Water 1,000 ML IV SCH
[2021-08-03] MEDS: DOBUTamine 500 mg/250 ml 250 ML IVPB SCH ×2 (03:23→19:37)
[2021-08-03 03:55] LABS: #Eosinphils 0.1 thou/uL (0.0-0.7); #Lymphocytes 1.4 thou/uL (1.20-3.40); #Monocytes 0.6 thou/uL (0.11-0.59); #Neutrophils 4.9 thou/uL (1.40-6.50); %Basophils 0.6 % (0.0-1.0); %Eosinophils 2.1 % (0.0-10.0); %Lymphocytes 19.8 % (21.0-51.0); %Monocytes 8.3 % (0.0-10.0); %Neutrophils 69.2 % (42.0-75.0); Hemoglobin 12.6 g/dL (12.0-16.0); Lactic Acid 1.7 mmol/L (0.5-2.2); Mean Corpuscular HGB CONC 33.5 g/dL (32.0-36.0); Mean Corpuscular Hemoglobin 34.9 pg (27.0-31.0); Mean Platelet Volume 7.8 fL (7.4-10.4); Platelet Count 112 thou/uL (130-400); RBC Distribution Width 13.9 % (11.5-14.5); White Blood Cell (WBC) Count 7.1 thou/uL (4.8-10.8)
[2021-08-03 04:25] LABS: Free T4 (Free Thyroxine) 0.77 ng/dL (0.70-1.48)
[2021-08-03 05:06] LABS: Anion Gap 10 mmol/L (10-20); BUN (Urea Nitrogen) 17 mg/dL (9.8-20.1); Calc. Creatinine Clearance 35 mL/min (70-130); Calcium 8.3 mg/dL (7.8-10.44); Carbon Dioxide 25 mmol/L (23-31); Chloride 103 mmol/L (98-107); Glucose 142 mg/dL (83-110); Sodium 135 mmol/L (136-145)
[2021-08-03] MEDS: Piperacillin/Tazobactam 3.375 GM in Sodium Chloride 0.9% 100 ML IVPB SCH ×3 (06:00→20:54)
[2021-08-03] MEDS: Famotidine/PF 20 mg/2ml Vial SLOW IVP SCH (10:38)
[2021-08-03] MEDS ORDERED: Potassium Chloride 20 MEQ TAB PO SCH (12:00)
[2021-08-03] MEDS ORDERED: Melatonin 3 MG TAB PO PRN (14:19)
[2021-08-03] MEDS: Sodium Bicarbonate 150 MEQ in Dextrose 5% in Water 1,000 ML IV SCH (20:51)
[2021-08-03] MEDS: Vancomycin 1 GM in Premix Bag 1 BAG IVPB SCH (23:59)
[2021-08-04 03:49] LABS: Anion Gap 13 mmol/L (10-20); BUN (Urea Nitrogen) 8 mg/dL (9.8-20.1); Calc. Creatinine Clearance 49 mL/min (70-130); Calcium 8.1 mg/dL (7.8-10.44); Carbon Dioxide 28 mmol/L (23-31); Chloride 98 mmol/L (98-107); Glucose 130 mg/dL (83-110); Sodium 136 mmol/L (136-145)
[2021-08-04 03:50] LABS: #Eosinphils 0.3 thou/uL (0.0-0.7); #Lymphocytes 1.2 thou/uL (1.20-3.40); #Monocytes 0.5 thou/uL (0.11-0.59); #Neutrophils 3.8 thou/uL (1.40-6.50); %Basophils 0.2 % (0.0-1.0); %Eosinophils 4.7 % (0.0-10.0); %Lymphocytes 21.3 % (21.0-51.0); %Monocytes 8.7 % (0.0-10.0); %Neutrophils 65.2 % (42.0-75.0); Hemoglobin 12.5 g/dL (12.0-16.0); Mean Corpuscular HGB CONC 33.1 g/dL (32.0-36.0); Mean Platelet Volume 7.4 fL (7.4-10.4); Platelet Count 122 thou/uL (130-400); RBC Distribution Width 13.8 % (11.5-14.5); Red Blood Cell (RBC) Count 3.58 mill/uL (4.20-5.40); White Blood Cell (WBC) Count 5.8 thou/uL (4.8-10.8)
[2021-08-04 03:55] LABS: Potassium 2.8 mmol/L (3.5-5.1)
[2021-08-04] MEDS ORDERED: Electrolyte Replacement Protocol 1 EACH FS SCH (04:15)
[2021-08-04] MEDS ORDERED: Potassium Chloride 20 MEQ in Premix Bag 1 BAG IVPB SCH ×2 (04:15→06:45)
[2021-08-04] MEDS: Potassium Chloride 40 MEQ in Sodium Chloride 0.9% 250 ML 250 ML IVPB SCH ×2 (04:33→09:39)
[2021-08-04 05:48] LABS: Magnesium 1.5 mg/dL (1.6-2.6)
[2021-08-04] MEDS ORDERED: Vancomycin 1.5 GRAM/300 ML BAG 1.5 GM in Premix Bag 1 BAG IVPB SCH (06:00)
[2021-08-04] MEDS ORDERED: Lidocaine 1% (PF) 30 ML VIAL ONE (06:12)
[2021-08-04] MEDS ORDERED: CEFAZOLIN 1 GM VIAL ONE (06:12)
[2021-08-04] MEDS ORDERED: Gentamicin 80 MG/2 ML VIAL ONE (06:12)
[2021-08-04] MEDS: Levothyroxine Sodium 100 MCG TAB PO SCH (06:39)
[2021-08-04] MEDS ORDERED: HYDROmorphone 2 MG/ML VIAL ONE (06:45)
[2021-08-04] MEDS ORDERED: Propofol 1,000 MG/100 ML VIAL IV ONE (06:45)
[2021-08-04] MEDS ORDERED: Sodium Chloride 0.9% 10 ML ONE (06:45)
[2021-08-04] MEDS ORDERED: Magnesium 2 GM/50 ML 2 GM in Premix Bag 1 BAG IVPB SCH (06:45)
[2021-08-04] MEDS ORDERED: Ondansetron PF 4 MG/2 ML Vial ONE (07:08)
[2021-08-04] MEDS ORDERED: Furosemide 40 MG/4 ML VIAL ONE ×2 (08:23→08:45)
[2021-08-04] MEDS ORDERED: Nitroglycerin 2% Ointment 1 INCH/1 GM Packet ONE (08:30)
[2021-08-04] MEDS ORDERED: DOBUTamine 500 mg/250 ml 250 ML IVPB SCH (08:30)
[2021-08-04] MEDS ORDERED: Furosemide 100 MG/10 ML VIAL SLOW IVP SCH (08:45)
[2021-08-04] MEDS: Famotidine/PF 20 mg/2ml Vial SLOW IVP SCH (08:51)
[2021-08-04] MEDS: Nitroglycerin 2% Ointment 1 INCH/1 GM Packet TOP SCH ×2 (08:51→15:05)
[2021-08-04] MEDS: Piperacillin/Tazobactam 3.375 GM in Sodium Chloride 0.9% 100 ML IVPB SCH (08:55)
[2021-08-04] MEDS ORDERED: DOPamine 400 MG/D5W 250 ML 250 ML IVPB SCH (10:15)
[2021-08-04] MEDS ORDERED: ALPRAZolam 0.25 MG TAB PO PRN (10:26)
[2021-08-04] MEDS ORDERED: Potassium Chloride 20 MEQ TAB PO SCH ×2 (12:00→17:00)
[2021-08-04 17:10] LABS: Anion Gap 13 mmol/L (10-20); BUN (Urea Nitrogen) 8 mg/dL (9.8-20.1); Calc. Creatinine Clearance 48 mL/min (70-130); Calcium 8.5 mg/dL (7.8-10.44); Carbon Dioxide 31 mmol/L (23-31); Chloride 97 mmol/L (98-107); Glucose 149 mg/dL (83-110); Magnesium 1.5 mg/dL (1.6-2.6); Potassium 3.1 mmol/L (3.5-5.1); Sodium 138 mmol/L (136-145)
[2021-08-05 03:26] LABS: #Eosinphils 0.1 thou/uL (0.0-0.7); #Lymphocytes 1.6 thou/uL (1.20-3.40); #Monocytes 0.7 thou/uL (0.11-0.59); #Neutrophils 5.3 thou/uL (1.40-6.50); %Basophils 0.5 % (0.0-1.0); %Eosinophils 1.8 % (0.0-10.0); %Lymphocytes 20.3 % (21.0-51.0); %Monocytes 8.8 % (0.0-10.0); %Neutrophils 68.6 % (42.0-75.0); Hemoglobin 14.9 g/dL (12.0-16.0); Mean Corpuscular HGB CONC 32.1 g/dL (32.0-36.0); Mean Corpuscular Hemoglobin 33.8 pg (27.0-31.0); Mean Platelet Volume 7.3 fL (7.4-10.4); Platelet Count 134 thou/uL (130-400); RBC Distribution Width 14.1 % (11.5-14.5); White Blood Cell (WBC) Count 7.7 thou/uL (4.8-10.8)
[2021-08-05 03:50] LABS: Anion Gap 11 mmol/L (10-20); BUN (Urea Nitrogen) 8 mg/dL (9.8-20.1); Calc. Creatinine Clearance 59 mL/min (70-130); Calcium 8.7 mg/dL (7.8-10.44); Carbon Dioxide 30 mmol/L (23-31); Chloride 99 mmol/L (98-107); Glucose 102 mg/dL (83-110); Magnesium 1.5 mg/dL (1.6-2.6); Potassium 3.3 mmol/L (3.5-5.1); Sodium 137 mmol/L (136-145)
[2021-08-05] MEDS ORDERED: Magnesium 2 GM/50 ML 2 GM in Premix Bag 1 BAG IVPB SCH (04:30)
[2021-08-05] MEDS ORDERED: Potassium Chloride 20 MEQ TAB PO SCH (04:30)
[2021-08-05] MEDS: Levothyroxine Sodium 100 MCG TAB PO SCH (06:14)
[2021-08-05] MEDS ORDERED: Potassium Bicarbonate/Cit Ac 20 MEQ TAB PO SCH (07:45)
[2021-08-05] MEDS: Famotidine/PF 20 mg/2ml Vial SLOW IVP SCH (08:24)
[2021-08-05] MEDS: Enoxaparin Sodium 60 MG/0.6 ML SYRINGE SC SCH ×2 (08:24→20:32)
[2021-08-05] MEDS ORDERED: Lorazepam 2 MG/ML VIAL SLOW IVP PRN (08:38)
[2021-08-05] MEDS: Potassium Chloride 20 MEQ in Premix Bag 1 BAG IVPB SCH ×2 (10:32→13:15)
[2021-08-05] MEDS: cefTRIAXone\\ROCEPHIN 1 GM in Sodium Chloride 0.9% 100 ML IVPB SCH (13:14)
[2021-08-05] MEDS: Thiamine HCl 200 MG/2 ML VIAL SLOW IVP SCH (13:15)
[2021-08-05] MEDS ORDERED: DOBUTamine 500 mg/250 ml 250 ML IVPB SCH (14:45)
[2021-08-05] MEDS: Lorazepam 2 MG/ML VIAL SLOW IVP PRN (15:45)
[2021-08-06] MEDS: Lorazepam 2 MG/ML VIAL SLOW IVP PRN (02:06)
[2021-08-06 04:12] LABS: Hemoglobin 14.4 g/dL (12.0-16.0); Mean Corpuscular HGB CONC 33.6 g/dL (32.0-36.0); Mean Corpuscular Hemoglobin 35.5 pg (27.0-31.0); Red Blood Cell (RBC) Count 4.07 mill/uL (4.20-5.40)
[2021-08-06 04:18] LABS: Anion Gap 10 mmol/L (10-20); BUN (Urea Nitrogen) 10 mg/dL (9.8-20.1); CRP (Inflammatory) 22.25 mg/dL (= or < 0.5); Calc. Creatinine Clearance 65 mL/min (70-130); Calcium 8.8 mg/dL (7.8-10.44); Carbon Dioxide 29 mmol/L (23-31); Chloride 103 mmol/L (98-107); Glucose 84 mg/dL (83-110); Magnesium 1.9 mg/dL (1.6-2.6); Potassium 3.5 mmol/L (3.5-5.1); Sodium 138 mmol/L (136-145)
[2021-08-06 04:32] LABS: #Eosinphils 0.1 thou/uL (0.0-0.7); #Lymphocytes 1.3 thou/uL (1.20-3.40); #Monocytes 0.6 thou/uL (0.11-0.59); #Neutrophils 3.9 thou/uL (1.40-6.50); %Basophils 0.2 % (0.0-1.0); %Eosinophils 2.4 % (0.0-10.0); %Lymphocytes 21.9 % (21.0-51.0); %Neutrophils 65.5 % (42.0-75.0); Elliptocytes SLIGHT = 2-5 cells (100X) (0-1/hpf); MDiff Complete? YES; Mean Platelet Volume 7.3 fL (7.4-10.4); Platelet Count 140 thou/uL (130-400); Platelet Morphology Comment Appears Adequate; Stomatocytes SLIGHT = 2-5 cells (100X) (0-1/hpf)
[2021-08-06] MEDS ORDERED: Potassium Chloride 20 MEQ TAB PO SCH (07:00)
[2021-08-06] MEDS ORDERED: Magnesium 2 GM/50 ML 2 GM in Premix Bag 1 BAG IVPB SCH (07:00)
[2021-08-06] MEDS: Levothyroxine Sodium 100 MCG TAB PO SCH (07:16)
[2021-08-06] MEDS: Enoxaparin Sodium 60 MG/0.6 ML SYRINGE SC SCH ×2 (08:30→19:50)
[2021-08-06] MEDS: Potassium Bicarbonate/Cit Ac 20 MEQ TAB PO SCH (08:30)
[2021-08-06] MEDS: Famotidine/PF 20 mg/2ml Vial SLOW IVP SCH (08:30)
[2021-08-06] MEDS: cefTRIAXone\\ROCEPHIN 1 GM in Sodium Chloride 0.9% 100 ML IVPB SCH (13:29)
[2021-08-06] MEDS: Thiamine HCl 200 MG/2 ML VIAL SLOW IVP SCH (13:29)
[2021-08-07 03:55] LABS: #Eosinphils 0.2 thou/uL (0.0-0.7); #Lymphocytes 1.9 thou/uL (1.20-3.40); #Monocytes 0.6 thou/uL (0.11-0.59); #Neutrophils 3.4 thou/uL (1.40-6.50); %Basophils 0.7 % (0.0-1.0); %Eosinophils 3.2 % (0.0-10.0); %Lymphocytes 31.8 % (21.0-51.0); %Neutrophils 55.3 % (42.0-75.0); Hemoglobin 13.6 g/dL (12.0-16.0); Mean Corpuscular HGB CONC 33.3 g/dL (32.0-36.0); Mean Corpuscular Hemoglobin 34.9 pg (27.0-31.0); Mean Platelet Volume 7.4 fL (7.4-10.4); Platelet Count 123 thou/uL (130-400); RBC Distribution Width 13.8 % (11.5-14.5); White Blood Cell (WBC) Count 6.1 thou/uL (4.8-10.8)
[2021-08-07 04:14] LABS: Anion Gap 9 mmol/L (10-20); BUN (Urea Nitrogen) 13 mg/dL (9.8-20.1); Calc. Creatinine Clearance 54 mL/min (70-130); Calcium 8.9 mg/dL (7.8-10.44); Carbon Dioxide 25 mmol/L (23-31); Chloride 105 mmol/L (98-107); Glucose 92 mg/dL (83-110); Potassium 4.2 mmol/L (3.5-5.1); Sodium 135 mmol/L (136-145)
[2021-08-07] MEDS: Levothyroxine Sodium 100 MCG TAB PO SCH (05:43)
[2021-08-07] MEDS ORDERED: Magnesium 2 GM/50 ML 2 GM in Premix Bag 1 BAG IVPB SCH (07:00)
[2021-08-07] MEDS: Potassium Bicarbonate/Cit Ac 20 MEQ TAB PO SCH (08:06)
[2021-08-07] MEDS: Enoxaparin Sodium 60 MG/0.6 ML SYRINGE SC SCH (08:06)
[2021-08-07] MEDS: Famotidine/PF 20 mg/2ml Vial SLOW IVP SCH (08:06)
[2021-08-07] MEDS: Thiamine 100 MG TAB PO SCH (14:16)
[2021-08-07] MEDS: Ramipril 5 MG CAP PO SCH (21:29)
[2021-08-08 04:45] LABS: #Eosinphils 0.2 thou/uL (0.0-0.7); #Lymphocytes 1.6 thou/uL (1.20-3.40); #Monocytes 0.5 thou/uL (0.11-0.59); #Neutrophils 2.8 thou/uL (1.40-6.50); %Basophils 0.6 % (0.0-1.0); %Eosinophils 3.9 % (0.0-10.0); %Lymphocytes 31.4 % (21.0-51.0); %Monocytes 9.3 % (0.0-10.0); %Neutrophils 54.8 % (42.0-75.0); Hemoglobin 13.6 g/dL (12.0-16.0); Mean Corpuscular HGB CONC 33.3 g/dL (32.0-36.0); Mean Corpuscular Hemoglobin 34.8 pg (27.0-31.0); Mean Platelet Volume 7.2 fL (7.4-10.4); Platelet Count 125 thou/uL (130-400); RBC Distribution Width 13.7 % (11.5-14.5); Red Blood Cell (RBC) Count 3.91 mill/uL (4.20-5.40)
[2021-08-08 05:09] LABS: Anion Gap 8 mmol/L (10-20); BUN (Urea Nitrogen) 12 mg/dL (9.8-20.1); Calc. Creatinine Clearance 62 mL/min (70-130); Calcium 9.1 mg/dL (7.8-10.44); Carbon Dioxide 27 mmol/L (23-31); Chloride 103 mmol/L (98-107); Glucose 99 mg/dL (83-110); Potassium 3.5 mmol/L (3.5-5.1); Sodium 134 mmol/L (136-145)
[2021-08-08] MEDS: Levothyroxine Sodium 100 MCG TAB PO SCH (05:15)
[2021-08-08] MEDS ORDERED: Fentanyl 100 MCG/2 ML VIAL ONE (06:42)
[2021-08-08] MEDS ORDERED: Ketamine 50 MG/ML (10ML VIAL) ONE (06:42)
[2021-08-08] MEDS ORDERED: Propofol 1,000 MG/100 ML VIAL IV ONE (06:42)
[2021-08-08] MEDS ORDERED: Gentamicin 80 MG/2 ML VIAL ONE ×2 (06:48→06:54)
[2021-08-08] MEDS ORDERED: CEFAZOLIN 1 GM VIAL ONE ×2 (06:48→09:22)
[2021-08-08] MEDS ORDERED: Phenylephrine 10 MG/ML VIAL ONE (06:53)
[2021-08-08] MEDS ORDERED: Potassium Bicarbonate/Cit Ac 20 MEQ TAB PER TUBE SCH (07:00)
[2021-08-08] MEDS ORDERED: Vancomycin 1.5 GRAM/300 ML BAG ONE (07:24)
[2021-08-08] MEDS ORDERED: Glycopyrrolate 0.2 MG/ML 5 ML SYRINGE ONE (07:47)
[2021-08-08 08:37] LABS: ALT (SGPT) 28 U/L (8-55); AST (SGOT) 20 U/L (5-34); Albumin 2.6 g/dL (3.4-4.8); Alkaline Phosphatase 108 U/L (40-110); Bilirubin, Direct 0.9 mg/dL (0.1-0.3); Bilirubin, Total 1.6 mg/dL (0.2-1.2); Protein, Total 5.1 g/dL (5.8-8.1)
[2021-08-08] MEDS: Cefdinir 300 MG CAP PO SCH (11:41)
[2021-08-08] MEDS: Famotidine/PF 20 mg/2ml Vial SLOW IVP SCH (11:41)
[2021-08-08] MEDS: Potassium Bicarbonate/Cit Ac 20 MEQ TAB PO SCH (11:41)
[2021-08-08] MEDS: Ramipril 5 MG CAP PO SCH ×2 (11:41→21:39)
[2021-08-08] MEDS: Thiamine 100 MG TAB PO SCH (11:45)
[2021-08-08] MEDS ORDERED: Bisacodyl 10 MG SUPP PR PRN (12:49)
[2021-08-08] MEDS ORDERED: Iopamidol 370 76% 50 ML VIAL FS ONE (15:13)
[2021-08-08] MEDS: Senokot S 8.6-50 MG TAB PO SCH (21:38)
[2021-08-09 05:14] LABS: #Eosinphils 0.2 thou/uL (0.0-0.7); #Lymphocytes 1.8 thou/uL (1.20-3.40); #Monocytes 0.5 thou/uL (0.11-0.59); #Neutrophils 3.6 thou/uL (1.40-6.50); %Basophils 0.2 % (0.0-1.0); %Lymphocytes 29.1 % (21.0-51.0); %Monocytes 8.2 % (0.0-10.0); %Neutrophils 59.4 % (42.0-75.0); Hemoglobin 14.2 g/dL (12.0-16.0); Mean Corpuscular HGB CONC 33.2 g/dL (32.0-36.0); Mean Corpuscular Hemoglobin 34.2 pg (27.0-31.0); Platelet Count 122 thou/uL (130-400); RBC Distribution Width 13.7 % (11.5-14.5); Red Blood Cell (RBC) Count 4.16 mill/uL (4.20-5.40); White Blood Cell (WBC) Count 6.1 thou/uL (4.8-10.8)
[2021-08-09] MEDS: Levothyroxine Sodium 100 MCG TAB PO SCH (05:30)
[2021-08-09 05:38] LABS: Anion Gap 13 mmol/L (10-20); BUN (Urea Nitrogen) 11 mg/dL (9.8-20.1); Calc. Creatinine Clearance 59 mL/min (70-130); Carbon Dioxide 24 mmol/L (23-31); Chloride 102 mmol/L (98-107); Glucose 88 mg/dL (83-110); Potassium 3.8 mmol/L (3.5-5.1); Sodium 135 mmol/L (136-145)
[2021-08-09] MEDS ORDERED: Amiodarone 200 MG TAB PO SCH (09:00)
[2021-08-09] MEDS: Polyethylene Glycol 3350 17 GM Packet PO SCH (09:35)
[2021-08-09] MEDS: Potassium Bicarbonate/Cit Ac 20 MEQ TAB PO SCH (09:35)
[2021-08-09] MEDS: Cefdinir 300 MG CAP PO SCH (09:35)
[2021-08-09] MEDS: Ramipril 5 MG CAP PO SCH ×2 (09:35→21:07)
[2021-08-09] MEDS: Senokot S 8.6-50 MG TAB PO SCH ×2 (09:36→21:07)
[2021-08-09 10:07] VITALS: BMI 23.1
[2021-08-09] MEDS: Thiamine 100 MG TAB PO SCH (11:48)
[2021-08-09 13:23] LABS: SARS-CoV-2 PCR by NAA Not Detected (NotDetected)
[2021-08-10 04:58] LABS: #Eosinphils 0.1 thou/uL (0.0-0.7); #Lymphocytes 1.8 thou/uL (1.20-3.40); #Monocytes 0.5 thou/uL (0.11-0.59); #Neutrophils 3.4 thou/uL (1.40-6.50); %Basophils 0.5 % (0.0-1.0); %Eosinophils 2.4 % (0.0-10.0); %Lymphocytes 31.2 % (21.0-51.0); %Monocytes 8.3 % (0.0-10.0); %Neutrophils 57.6 % (42.0-75.0); Hemoglobin 14.3 g/dL (12.0-16.0); Mean Corpuscular HGB CONC 33.6 g/dL (32.0-36.0); Mean Corpuscular Hemoglobin 34.7 pg (27.0-31.0); Mean Platelet Volume 7.8 fL (7.4-10.4); Platelet Count 134 thou/uL (130-400); RBC Distribution Width 13.8 % (11.5-14.5); Red Blood Cell (RBC) Count 4.12 mill/uL (4.20-5.40); White Blood Cell (WBC) Count 5.8 thou/uL (4.8-10.8)
[2021-08-10] MEDS: Levothyroxine Sodium 100 MCG TAB PO SCH (05:09)
[2021-08-10 05:31] LABS: Anion Gap 12 mmol/L (10-20); BUN (Urea Nitrogen) 13 mg/dL (9.8-20.1); Calc. Creatinine Clearance 62 mL/min (70-130); Calcium 9.5 mg/dL (7.8-10.44); Carbon Dioxide 26 mmol/L (23-31); Chloride 102 mmol/L (98-107); Glucose 94 mg/dL (83-110); Potassium 3.8 mmol/L (3.5-5.1); Sodium 136 mmol/L (136-145)
[2021-08-10] MEDS: Polyethylene Glycol 3350 17 GM Packet PO SCH (08:56)
[2021-08-10] MEDS: Senokot S 8.6-50 MG TAB PO SCH (08:57)
[2021-08-10] MEDS: Ramipril 5 MG CAP PO SCH (08:57)
[2021-08-10] MEDS: Potassium Bicarbonate/Cit Ac 20 MEQ TAB PO SCH (08:57)
[2021-08-10] MEDS: Cefdinir 300 MG CAP PO SCH (08:57)
[2021-08-10] MEDS ORDERED: Amiodarone 200 MG TAB PO SCH (09:00)
[2021-08-10] MEDS ORDERED: Apixaban 5 MG TAB PO SCH (09:00)
[2021-08-10 12:13] VITALS: TEMP 97.4
[2021-08-10] MEDS: Thiamine 100 MG TAB PO SCH (12:15)
[2021-08-10 13:26] VITALS: BP 140/90
== END 2021-08-10 16:25 | DRG 242 ==
LOC: ERS 19:15 → IMCU/EMU 22:04 → 2NO 08-07 16:39
PROVIDERS: ADMIT Student in an Organized Health Care Education/Training Program; ATTEND Internal Medicine
PROC: 0JH606Z Insertion of Pacemaker, Dual Chamber into Chest Subcutaneous Tissue and Fascia, Open Approach (ICD-10-PCS; principal; 2021-08-08)
PROC: 02HK0JZ Insertion of Pacemaker Lead into Right Ventricle, Open Approach (ICD-10-PCS; 2021-08-08)
PROC: 02HL0JZ Insertion of Pacemaker Lead into Left Ventricle, Open Approach (ICD-10-PCS; 2021-08-08)
PROC: 02H60JZ Insertion of Pacemaker Lead into Right Atrium, Open Approach (ICD-10-PCS; 2021-08-08)
DX: I49.5 Sick sinus syndrome (principal); G93.41 Metabolic encephalopathy; I50.43 Acute on chronic combined systolic (congestive) and diastolic (congestive) heart failure; J96.01 Acute respiratory failure with hypoxia; N17.9 Acute kidney failure, unspecified; E87.2 Acidosis; E87.1 Hypo-osmolality and hyponatremia; I13.0 Hypertensive heart and chronic kidney disease with heart failure and stage 1 through stage 4 chronic kidney disease, or unspecified chronic kidney disease; F10.239 Alcohol dependence with withdrawal, unspecified; I47.2 Ventricular tachycardia; Z66 Do not resuscitate; Z20.822 Contact with and (suspected) exposure to COVID-19; E80.6 Other disorders of bilirubin metabolism; I35.0 Nonrheumatic aortic (valve) stenosis; I44.7 Left bundle-branch block, unspecified; I42.8 Other cardiomyopathies; E87.6 Hypokalemia; E83.42 Hypomagnesemia; I48.0 Paroxysmal atrial fibrillation; N18.9 Chronic kidney disease, unspecified; E78.5 Hyperlipidemia, unspecified; I34.0 Nonrheumatic mitral (valve) insufficiency; Z79.890 Hormone replacement therapy; Z79.01 Long term (current) use of anticoagulants; Z79.899 Other long term (current) drug therapy
CPT/HCPCS: 0240U; 33208; 33225; 36415; 36416; 36600; 51701; 70496; 70498; 71045; 74176; 76705; 80048; 80053; 80076; 80202; 81003; 81015; 82247; 82550; 82570; 82805; 83605; 83735; 83880; 84100; 84156; 84300; 84439; 84443; 84481; 84484; 84540; 85025; 85610; 85730; 86140; 87040; 87086; 93005; 93306; 94660; 96374; 96375; 96376; C1769; C1898; C1900; C2621; J0461; J0690; J0692; J0696; J1170; J1250; J1265; J1580; J1650; J1940; J2001; J2060; J2358; J2370; J2405; J2543; J2704; J3010; J3370; J3411; J3475; J3480; J3490; J7050; J7070; Q9967; S0028; U0003; U0005

== ENCOUNTER 2022-08-01 08:57 | Outpatient (CLI) | payer MEDICARE, BC ==
[2022-08-01] MEDS ORDERED: Iopamidol 370 76% 100 ML VIAL ONE (15:59)
== END 2022-08-01 08:58 | disposition home or self-care (01) ==
LOC: BICCT 08:57
PROVIDERS: ATTEND Internal Medicine
DX: S32.03 Fracture of third lumbar vertebra (principal); M46.1 Sacroiliitis, not elsewhere classified; R91.8 Other nonspecific abnormal finding of lung field; M25.551 Pain in right hip; M47.816 Spondylosis without myelopathy or radiculopathy, lumbar region; J98.4 Other disorders of lung; Z87.81 Personal history of (healed) traumatic fracture
CPT/HCPCS: 71260; 72131; 82565; Q9967

== ENCOUNTER 2022-09-29 09:23 | Outpatient (CLI) | payer MEDICARE, BC | END 2022-09-29 09:24 | disposition home or self-care (01) | LOC: BICMAMMO 09:23 | PROVIDERS: ATTEND Internal Medicine | DX: Z13.820 Encounter for screening for osteoporosis (principal); M85.89 Other specified disorders of bone density and structure, multiple sites; Z78.0 Asymptomatic menopausal state | CPT/HCPCS: 77080 ==